=== PATIENT | female | born 1950 | race Caucasian/White ===

== ENCOUNTER 2017-05-12 16:13 | Outpatient (CLI) | payer OTHER ==
--- NOTE | 2017-05-14 17:17 | Mammography Report ---
DIGITAL SCREENING MAMMOGRAM: 05/12/2017 CLINICAL INDICATION: A 66-year-old nulliparous patient for screening. COMPARISON: 05/2016, 04/2015, 12/2013, 08/2012, 08/2011, 08/2010. TECHNIQUE: Routine CC and MLO projections were obtained of the breasts. FINDINGS: Parenchymal tissue within the breasts is predominantly fatty replaced. There are no domin ant masses, suspicious microcalcifications, or secondary signs of malignancy. In comparison to the p revious studies, there are no significant changes. IMPRESSION: NO MAMMOGRAPHIC EVIDENCE OF MALIGNANCY. NO SIGNIFICANT INTERVAL CHANGES. RECOMMENDATION: Screening mammography is recommended annually. BIRADS category 1 - negative. STANDARD QUALIFYING STATEMENTS 1. This examination was reviewed with the aid of Computed-Aided Detection (CAD). 2. A negative or benign imaging report should not delay biopsy if clinically suspicious findings are present. Consider surgical consultation if warranted. More than 5% of cancers are not identified b y imaging. 3. Dense breasts may obscure an underlying neoplasm. JOB #: [id number] EXT JOB #:[id number]
== END 2017-05-12 16:14 | disposition home or self-care (01) ==
LOC: DI 16:13
PROVIDERS: ATTEND Family Medicine
DX: Z12.31 Encounter for screening mammogram for malignant neoplasm of breast (principal)
CPT/HCPCS: 77067

== ENCOUNTER 2017-10-28 11:59 | Inpatient (IN) | payer BC, OTHER ==
[2017-10-28] MEDS ORDERED: SODIUM CHLORIDE 0.9% 1,000 ML IV ONE (12:05)
[2017-10-28 12:28] LABS: BASOPHILS # (AUTO) 0.1 10^3/uL (0.0-0.1); BASOPHILS % (AUTO) 1.2 %; EOSINOPHILS # (AUTO) 0.4 10^3/uL (0.0-0.7); EOSINOPHILS % (AUTO) 5.2 %; HGB - HEMOGLOBIN 11.7 g/dL (12.0-16.0); LYMPHOCYTES # (AUTO) 1.7 10^3/uL (1.5-3.5); MEAN CORPUSCULAR HEMOGLOBIN 29.1 pg (27.0-31.0); MEAN CORPUSCULAR HGB CONC 33.1 g/dL (32.0-36.0); MEAN CORPUSCULAR VOLUME 87.7 fL (81.0-99.0); MEAN PLATELET VOLUME 7.9 fL (7.9-10.8); MONOCYTES # (AUTO) 0.8 10^3/uL (0.0-1.0); MONOCYTES % (AUTO) 10.2 %; NEUTROPHILS # (AUTO) 4.9 10^3/uL (1.5-6.6); NEUTROPHILS % (AUTO) 62.4 %; PLT - PLATELET COUNT 231 10^3/uL (130-450); RED BLOOD COUNT 4.03 10^6/uL (4.20-5.40); RED CELL DISTRIBUTION WIDTH 14.4 % (12.0-15.0); WHITE BLOOD COUNT 7.9 x10^3/uL (4.8-10.8)
[2017-10-28 13:49] LABS: BILIRUBIN,URINE NEGATIVE (NEGATIVE); GLUCOSE, URINE (UA) NEGATIVE (NEGATIVE); KETONES,URINE (UA) NEGATIVE (NEGATIVE); LEUKOCYTE ESTERASE, URINE LARGE (NEGATIVE); NITRITE,URINE NEGATIVE (NEGATIVE); OCCULT BLOOD,URINE MODERATE (NEGATIVE); PROTEIN,URINE NEGATIVE (NEGATIVE); UROBILINOGEN,URINE 0.2 (NORMAL) E.U./dL (NORMAL)
[2017-10-28 13:52] LABS: CLARITY,URINE HAZY (CLEAR)
[2017-10-28 14:07] LABS: SQUAMOUS EPITHELIAL CELL,UR RARE Squamous (<= Few); WBC CLUMPS,URINE PRESENT
[2017-10-28 14:08] LABS: BACTERIA,URINE Rare /HPF (None Seen)
--- NOTE | 2017-10-28 14:11 | ED Physician Documentation ---
History of Present Illness - Stated complaint Stated Complaint: DEHYDRATION - Chief complaint Chief Complaint: General - Additonal information Additional information: hx from pt sent to ER for CK 17K per pt she had a poor appetite over the weekend, was weak, lost her balance and fell twice denies any injury - states did not hit her head hurt her neck break her hip etc had to struggle to get back up and abraded elbows and forehead denies fever cough NVD dysuria denies GREY CP AP states she is hungry Review of Systems Constitutional: denies: Fever, Chills Cardiac: denies: Chest pain / pressure Respiratory: denies: Dyspnea GI: denies: Abdominal Pain, Nausea, Vomiting : denies: Dysuria Endocrine: denies: Easy bruising / bleeding Immunocompromised: denies: Immunocompromised PD PAST MEDICAL HISTORY - Past Medical History Past Medical History: No Cardiovascular: Hypertension Respiratory: None Neuro: Headache/migraine Endocrine/Autoimmune: Type 2 diabetes : None HEENT: Glaucoma Psych: Depression Musculoskeletal: None Derm: None - Past Surgical History Past Surgical History: Yes General: Cholecystectomy HEENT: Tonsil/Adenoidectomy - Present Medications Home Medications: Ambulatory Orders Medication Instructions Recorded Confirmed Acetaminophen 500 mg PO TID PRN 10/28/17 10/28/17 Aripiprazole [Abilify] 10 mg PO DAILY 10/28/17 10/28/17 Aspirin EC [Ecotrin] 162.5 mg PO DAILY 10/28/17 10/28/17 Erythromycin Base [Erythromycin 0.5 inch EACHEYE [id number] 10/28/17 10/28/17 Ophthalmic Ointment] Glipizide 10 mg PO 0730,1630 10/28/17 10/28/17 Latanoprost 0.005% Ophth Drops 1 drops LEFTEYE QPM 10/28/17 10/28/17 [Xalatan Ophth Drops] Lisinopril 20 mg PO DAILY 10/28/17 10/28/17 Methylphenidate HCl 40 mg PO 0400,0900,1400 10/28/17 10/28/17 Mirtazapine 60 mg PO QPM 10/28/17 10/28/17 Timolol 0.5% Ophth Drops [Timoptic 1 drops EACHEYE DAILY 10/28/17 10/28/17 0.5% Ophth Drops] metFORMIN [Glucophage] 1,000 mg PO BIDWM 10/28/17 10/28/17 - Allergies Allergies/Adverse Reactions: Allergies Allergy/AdvReac Type Severity Reaction Status Date / Time bee venom protein (honey bee) Allergy Anaphylaxis Verified 10/28/17 12:04 - Social History Does the pt smoke?: No Smoking Status: Never smoker Does the pt drink ETOH?: Yes Does the pt have substance abuse?: No - Immunizations Immunizations are current?: Yes - POLST Patient has POLST: No PD ED PE NORMAL - Vitals Vital signs reviewed: Yes - General General: Alert and oriented X 3 - HEENT HEENT: PERRL, EOMI (injected mel) - Neck Neck: Supple, no meningeal sign, No bony TTP - Cardiac Cardiac: RRR - Respiratory Respiratory: No respiratory distress, Clear bilaterally - Abdomen Abdomen: Soft, Non tender - Derm Derm: Normal color - Extremities Extremities: No deformity, Other (hips full ROM) - Neuro Neuro: Alert and oriented X 3 Eye Opening: Spontaneous Motor: Obeys Commands Verbal: Oriented GCS Score: 15 Results - Vitals Vitals: Vital Signs - 24 hr 10/28/17 12:00 Temperature 36.3 C L Heart Rate 91 Respiratory 16 Rate Blood Pressure 129/79 O2 Saturation 99 Oxygen O2 Source Room air - Labs Labs: Laboratory Tests 10/28/17 10/28/17 10/28/17 11:30 11:30 12:18 WBC 7.9 RBC 4.03 L Hgb 11.7 L Hct 35.3 L MCV 87.7 MCH 29.1 MCHC 33.1 RDW 14.4 Plt Count 231 MPV 7.9 Neut # 4.9 Lymph # 1.7 [place] # 0.8 Eos # 0.4 Baso # 0.1 Absolute Nucleated RBC 0.00 Nucleated RBC % 0.0 Sodium Potassium Chloride Carbon Dioxide Anion Gap BUN Creatinine Estimated GFR (MDRD) Glucose Calcium Total Bilirubin AST ALT Alkaline Phosphatase Total Creatine Kinase Total Protein Albumin Globulin Albumin/Globulin Ratio Lipase Urine Color YELLOW Urine Clarity HAZY Urine pH 6.0 Ur Specific [place] <=1.005 Urine Protein NEGATIVE Urine Glucose (UA) NEGATIVE Urine Ketones NEGATIVE Urine Occult Blood MODERATE H Urine Nitrite NEGATIVE Urine Bilirubin NEGATIVE Urine Urobilinogen 0.2 (NORMAL) Ur Leukocyte Esterase LARGE H Urine RBC 6-10 H Urine WBC >25 H Urine WBC Clumps PRESENT Ur Epithelial Cells RARE Renal Tubular Ur Squamous Epith Cells RARE Squamous Urine Bacteria Rare Ur Microscopic Review INDICATED Urine Culture Comments INDICATED Urine Opiates Screen NEGATIVE Ur Oxycodone Screen NEGATIVE Urine Methadone Screen NEGATIVE Ur Propoxyphene Screen NEGATIVE Ur Barbiturates Screen NEGATIVE Ur Tricyclics Screen NEGATIVE Ur Phencyclidine Scrn NEGATIVE Ur Amphetamine Screen NEGATIVE U Methamphetamines Scrn NEGATIVE U Benzodiazepines Scrn NEGATIVE Urine Cocaine Screen NEGATIVE U Cannabinoids Screen NEGATIVE 10/28/17 12:18 WBC RBC Hgb Hct MCV MCH MCHC RDW Plt Count MPV Neut # Lymph # [place] # Eos # Baso # Absolute Nucleated RBC Nucleated RBC % Sodium 138 Potassium 3.6 Chloride 109 Carbon Dioxide 22 Anion Gap 7.0 BUN 10 Creatinine 0.9 Estimated GFR (MDRD) 63 L Glucose 179 H Calcium 8.6 Total Bilirubin 0.7 AST 234 H ALT 95 H Alkaline Phosphatase 64 Total Creatine Kinase 23399 H* Total Protein 7.6 Albumin 3.5 Globulin 4.1 Albumin/Globulin Ratio 0.9 L Lipase 14 L Urine Color Urine Clarity Urine pH Ur Specific [place] Urine Protein Urine Glucose (UA) Urine Ketones Urine Occult Blood Urine Nitrite Urine Bilirubin Urine Urobilinogen Ur Leukocyte Esterase Urine RBC Urine WBC Urine WBC Clumps Ur Epithelial Cells Ur Squamous Epith Cells Urine Bacteria Ur Microscopic Review Urine Culture Comments Urine Opiates Screen Ur Oxycodone Screen Urine Methadone Screen Ur Propoxyphene Screen Ur Barbiturates Screen Ur Tricyclics Screen Ur Phencyclidine Scrn Ur Amphetamine Screen U Methamphetamines Scrn U Benzodiazepines Scrn Urine Cocaine Screen U Cannabinoids Screen PD MEDICAL DECISION MAKING - ED course ED course: rhabdo - CL 11K + - gave 2 L NS and bicarb gtt and will admit also UTI which was the likely underlying cause of of hear weakness an fall in the first place - gave rocephin AST noted - per NN pt drinks Departure - Departure Disposition: 66 [facility] DC/Xfer Clinical Impression: Rhabdomyolysis Qualifiers: Rhabdomyolysis type: traumatic Encounter type: initial encounter Qualified Code (s): T79.6XXA - Traumatic ischemia of muscle, initial encounter UTI (urinary tract infection) Qualifiers: Urinary tract infection type: site unspecified Hematuria presence: with hematuria Qualified Code(s): N39.0 - Urinary tract infection, site not specified Condition: Good Discharge Date/Time: 10/28/17 16:07
[2017-10-28 14:12] LABS: ALBUMIN 3.5 g/dL (3.2-5.5); ALBUMIN/GLOBULIN RATIO 0.9 (1.0-2.2); BILIRUBIN,TOTAL 0.7 mg/dL (0.2-1.0); CALCIUM 8.6 mg/dL (8.5-10.3); CREATININE 0.9 mg/dL (0.4-1.0); TOTAL PROTEIN 7.6 g/dL (6.7-8.2)
[2017-10-28] MEDS ORDERED: SODIUM BICARBONATE 100 MEQ in DEXTROSE 5% 1,000 ML IV STA (14:12)
[2017-10-28] MEDS ORDERED: SODIUM CHLORIDE 0.9% 2,000 ML IV ONE (14:12)
[2017-10-28] MEDS ORDERED: cefTRIAXone 1 GM in SODIUM CHLORIDE 0.9% MINIBAG 100 ML IV STA (14:13)
[2017-10-28] MEDS ORDERED: SODIUM CHLORIDE FLUSH 0.9% 10 ML SYRINGE IVP PRN (14:58)
[2017-10-28] MEDS ORDERED: SODIUM CHLORIDE 0.9% 1,000 ML IV SCH (15:00)
--- NOTE | 2017-10-28 17:15 | HISTORY & PHYSICAL EXAMINATION ---
Chief Complaint - Chief Complaint Chief Complaint: fall History of Present Illness - Admitted From Admitted From:: ED - History Obtained From Records Reviewed: yes History obtained from: Chart review, patient Exam Limitations: mental status - History of Present Illness HPI Comment/Other: Saira Dozier is a 66 year old obese white female with a past medical history of DM type 2, hypertension, headaches, migraines, glaucoma, depression, and alcohol dependence. She admits to "a few falls" in the past several days where she lost her footing. Both times, she was able to make it back to her bed and rest. She states that she went to her primary care provider who gave her 1.5L of IV fluids, and she was sent home. She fell again last night, made it back to bed, called in sick for work and friend drove her to our ED. Once in the ED , she was found to have an elevated CK of 11,000, +UTI, conjunctivitis, and a reduced GFR of 63. She wishes her code status to be DNI. She denies fevers, chills, cough, chest pain or shortness of breath. She admits to a recent sore throat, mild arm/shoulder pain and plugged ears. She will be admitted for at least 2 midnights for IVFs, treatment of her UTI, blood sugar control, and monitoring History - Past Medical History Cardiovascular: reports: Hypertension Respiratory: reports: None Neuro: reports: Headache/migraine (caused by perfumes or cleaning solutions.) Endocrine/Autoimmune: reports: Type 2 diabetes GI: reports: None. denies: Esophageal varices, GI bleed, Ulcers BRAND LEADER: reports: None : reports: None, Other (Patient is unaware of current UTI, denies symptoms.) HEENT: reports: Glaucoma Psych: reports: Depression, Other (narcolepsy-Takes Ritalin at home TID.) Musculoskeletal: reports: None Derm: reports: None MRSA Hx?: No - Past Surgical History General: reports: Cholecystectomy HEENT: reports: Tonsil/Adenoidectomy - Family & Social History Family History: Mother: , Father: , Sister: Alive and Well Family History Comment/Other: Mother of a brain aneurysm, father of myelodysplastic syndrome. She has one biological sister who is alive and well. Living arrangement: At home Living Situation: Alone Social History Notes: She admits to attending "happy hour" a few nights per week and states that she no longer checks her blood sugar due to lack of finances. 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 She lives alone and her closest friend is Melissa Richard who is a neighbor. She does not have children, no pets. She denies tobacco or illicit drug use. - Substance History Use: Uses substance without health or social issues: NONE Abuse: Recurrent use of substance despite neg consequences: NONE Dependence: Experiences withdrawal or developed tolerances: NONE - POLST Patient has POLST: No POLST Status: Limited Interventions (Do not intubate.) Meds/Allgy - Home Medications Home Medications: Ambulatory Orders Medication Instructions Recorded Confirmed Acetaminophen 500 mg PO TID PRN 10/28/17 10/28/17 Aripiprazole [Abilify] 10 mg PO DAILY 10/28/17 10/28/17 Aspirin EC [Ecotrin] 162.5 mg PO DAILY 10/28/17 10/28/17 Erythromycin Base [Erythromycin 0.5 inch EACHEYE [id number] 10/28/17 10/28/17 Ophthalmic Ointment] Glipizide 10 mg PO 0730,1630 10/28/17 10/28/17 Latanoprost 0.005% Ophth Drops 1 drops LEFTEYE QPM 10/28/17 10/28/17 [Xalatan Ophth Drops] Lisinopril 20 mg PO DAILY 10/28/17 10/28/17 Methylphenidate HCl 40 mg PO 0400,0900,1400 10/28/17 10/28/17 Mirtazapine 60 mg PO QPM 10/28/17 10/28/17 Timolol 0.5% Ophth Drops [Timoptic 1 drops EACHEYE DAILY 10/28/17 10/28/17 0.5% Ophth Drops] metFORMIN [Glucophage] 1,000 mg PO BIDWM 10/28/17 10/28/17 - Allergies Allergies/Adverse Reactions: Allergies Allergy/AdvReac Type Severity Reaction Status Date / Time bee venom protein (honey bee) Allergy Anaphylaxis Verified 10/28/17 12:04 Review of Systems - Constitutional Constitutional: reports: Fatigue, Weakness, Poor appetite - Eyes Eyes: reports: Irritation, Other (conjunctivitis) - Ears, Nose & Throat Ears, Nose & Throat: reports: Hearing loss, Sore throat, Hoarseness - Cardiovascular Cariovascular: reports: Decr. exercise tolerance - Musculoskeletal Musculoskeletal: reports: Joint swelling - Neurological Neurological: reports: Incoordination - Psychiatric Psychiatric: reports: Depression - Hematologic/Lymphatic Hematologic/Lymphatic: reports: Anemia - All Other Systems All Other Systems: reports: Reviewed and negative Exam - Vital Signs Reviewed Vital Signs: Yes - Physical Exam General Appearance: positive: Moderate distress Eyes Bilateral: positive: PERRL, Other (conjuctivae erythema) ENT: positive: ENT inspection nml, Pharynx nml, Pharyngeal erythema, Dry mucous membranes Neck: positive: Nml inspection, Thyroid nml, No JVD, Other (neck circumferance large) Respiratory: positive: Chest non-tender, No respiratory distress, Breath sounds nml Cardiovascular: positive: Regular rate & rhythm, No murmur, No gallop, Decreased pulse(s) Peripheral Pulses: positive: 1+ Abdomen: positive: Non-tender, Nml bowel sounds, Hepatomegaly, Other (obese, soft) Back: positive: Nml inspection Skin: positive: No rash, Warm, Dry Extremities: positive: Non-tender, Full ROM, Nml appearance, Pedal edema ( depedent) Neurologic/Psychiatric: positive: Oriented x3, CN's nml (2-12), Motor nml, Weakness, Sensory loss, Depressed mood/affect, Other (slow to respond, changes story often.) Reflexes: Bicep (R): 2+, Bicep (L): 2+ Conclusion/Plan - Problem List (1) Noncompliance by refusing intervention or support Conclusion/Plan: Patient was informed of hospital policy regarding Metformin being on hold and using Lantus in it's place. She states that she will refuse this when offered. I spent a great deal of time surrounding this subject and when asked why, she states "I don't want to be hooked on insulin for the rest of my life". Given her elevated LFTs, I cannot say that I would recommend continuing this on discharge. Plan: Continue current insulin orders and re-address in AM. (2) Rhabdomyolysis Conclusion/Plan: Per chart review, patient went to her PCP the day before admission, where she was diagnosed with pink eye and given IVFs for a CK of 17,000. Upon arrival to the ED today, her CK was reduced to 11,000. Patient admits to lying on her floor with the inability to get up. She has several injuries related to this including bilateral skinned elbows, bilateral skinned knees and slight rug burn on her left forehead. She believes this is why she has pink eye. Plan: Continue high dose IVF, normal saline and monitor CK, daily labs. Qualifiers: Rhabdomyolysis type: traumatic Encounter type: initial encounter Qualified Code(s): T79.6XXA - Traumatic ischemia of muscle, initial encounter (3) UTI (urinary tract infection) Conclusion/Plan: Patient denies urinary symptoms or incontinence. A UA was obtained in the ED and shows +UTI. Cultures are pending. She was given 1 dose of IV antibiotics. Plan: Treat with IV antibiotics and await culture sensitivities. Qualifiers: Urinary tract infection type: site unspecified Hematuria presence: with hematuria Qualified Code(s): N39.0 - Urinary tract infection, site not specified; R31.9 - Hematuria, unspecified; R31.9 - Hematuria, unspecified (4) Bilateral conjunctivitis Conclusion/Plan: Patient was seen by her PCP and was diagnosed with this. She claims that the cause is from her carpeting at home as she was lying on the floor for a prolonged time. Plan: Continue prescribed eye medication. Qualifiers: Conjunctivitis type: acute (5) Diabetes mellitus type 2 in obese Conclusion/Plan: Patient states she has a poor memory lately, but believes that she has been diabetic for at least 10 years and has refused insulin in the past. She currently takes metformin and glypizide, but admits to never performing blood glucose checks due to the financial burden related to obtaining appropriate supplies. Plan: Continue counseling, and a nutritional consult was made. Continue blood glucose checks, diabetic diet, and offer appropriate insulin as ordered. - Lab Results Lab results reviewed: Yes Fish Bones: 10/29/17 05:00 10/29/17 05:00 - Diagnostic Imaging Results Diagnostic Imaging Results: positive: Prelim report reviewed, Final report reviewed - EKG Results EKG Interpreted Independently: Yes Core Measures - Anticipated LOS I expect patient to be DC'd or transferred within 96 hours.: Yes - DVT/VTE - Prophylaxis VTE/DVT Device ordered at admit?: Yes VTE/DVT Prophylaxis med ordered at admit?: Yes - Stroke - Rehab Assessment Rehab services assessment to be ordered?: Yes - AMI - Statin at Admit Aspirin Prescribed on Admit: Yes
[2017-10-28] MEDS: ENOXAPARIN 40 MG/0.4 ML SYRINGE SUBQ SCH (17:48)
[2017-10-28] MEDS: ERYTHROMYCIN OPHTH OINT 1 GM TUBE EACHEYE SCH ×2 (17:49→21:07)
[2017-10-28 17:59] LABS: MUDS CUTOFF CONCENTRATIONS CUTOFF CONC BELOW:
[2017-10-28] MEDS: SODIUM CHLORIDE FLUSH 0.9% 10 ML SYRINGE IVP SCH (17:59)
[2017-10-28 18:10] LABS: AMPHETAMINE SCREEN,URINE NEGATIVE (NEGATIVE); BENZODIAZEPINES SCREEN, URINE NEGATIVE (NEGATIVE); COCAINE SCREEN URINE NEGATIVE (NEGATIVE); METHADONE SCREEN, URINE NEGATIVE (NEGATIVE); METHAMPHETAMINES SCREEN, URINE NEGATIVE (NEGATIVE); OPIATE SCREEN, URINE NEGATIVE (NEGATIVE); OXYCODONE SCREEN, URINE NEGATIVE (NEGATIVE); PROPOXYPHENE SCREEN, URINE NEGATIVE (NEGATIVE); TRICYCLIC ANTIDEPRESSANT,URINE NEGATIVE (NEGATIVE)
[2017-10-28] MEDS: INSULIN ASPART 300 UNIT/3 ML PEN SUBQ SCH ×3 (18:10→21:14)
[2017-10-28 18:40] LABS: CHOL/HDL RATIO 3.7 (<4.4); CHOLESTEROL 110 mg/dL; HDL CHOLESTEROL 30 mg/dL; LDL CHOLESTEROL,CALCULATED 49 mg/dL; LDL/HDL RATIO 1.6 (<4.4); VLDL CHOLESTEROL 31 mg/dL
[2017-10-28] MEDS ORDERED: INSULIN GLARGINE 300 UNIT/3 ML PEN SUBQ SCH (21:00)
[2017-10-28] MEDS: ASPIRIN 325 MG TABLET PO SCH (21:05)
[2017-10-28] MEDS: MIRTAZAPINE 15 MG TABLET PO SCH (21:05)
[2017-10-28] MEDS: LATANOPROST 0.005% OPHTH DROPS LEFTEYE SCH (21:06)
[2017-10-28] MEDS: HYDROmorphone 1 MG/ML SYRINGE IVP PRN (21:20)
[2017-10-28] MEDS: SODIUM CHLORIDE 0.9% 1,000 ML IV SCH (21:21)
[2017-10-29] MEDS: SODIUM CHLORIDE 0.9% 1,000 ML IV SCH ×5 (00:59→23:01)
[2017-10-29] MEDS: SODIUM CHLORIDE FLUSH 0.9% 10 ML SYRINGE IVP SCH ×3 (03:33→16:56)
[2017-10-29 05:21] LABS: BASOPHILS # (AUTO) 0.1 10^3/uL (0.0-0.1); EOSINOPHILS # (AUTO) 0.4 10^3/uL (0.0-0.7); EOSINOPHILS % (AUTO) 7.2 %; HGB - HEMOGLOBIN 10.3 g/dL (12.0-16.0); LYMPHOCYTES # (AUTO) 1.4 10^3/uL (1.5-3.5); LYMPHOCYTES % (AUTO) 26.2 %; MEAN CORPUSCULAR HEMOGLOBIN 28.5 pg (27.0-31.0); MEAN CORPUSCULAR HGB CONC 32.7 g/dL (32.0-36.0); MEAN CORPUSCULAR VOLUME 87.4 fL (81.0-99.0); MEAN PLATELET VOLUME 7.6 fL (7.9-10.8); MONOCYTES # (AUTO) 0.6 10^3/uL (0.0-1.0); MONOCYTES % (AUTO) 11.5 %; NEUTROPHILS % (AUTO) 54.1 %; PLT - PLATELET COUNT 200 10^3/uL (130-450); RED BLOOD COUNT 3.62 10^6/uL (4.20-5.40); RED CELL DISTRIBUTION WIDTH 14.4 % (12.0-15.0); WHITE BLOOD COUNT 5.5 x10^3/uL (4.8-10.8)
[2017-10-29 05:32] LABS: ALBUMIN 2.8 g/dL (3.2-5.5); ALBUMIN/GLOBULIN RATIO 0.8 (1.0-2.2); BILIRUBIN,TOTAL 0.4 mg/dL (0.2-1.0); CALCIUM 8.4 mg/dL (8.5-10.3); CREATININE 0.9 mg/dL (0.4-1.0); TOTAL PROTEIN 6.2 g/dL (6.7-8.2)
[2017-10-29 05:37] LABS: HB2 TOTAL 10.9 g/dL; HEMOGLOBIN A1C 0.81 g/dL; HEMOGLOBIN A1C % 8.9 % (4.6-6.2)
[2017-10-29] MEDS: ERYTHROMYCIN OPHTH OINT 1 GM TUBE EACHEYE SCH ×3 (08:11→20:40)
[2017-10-29] MEDS: INSULIN ASPART 300 UNIT/3 ML PEN SUBQ SCH ×7 (08:11→20:35)
[2017-10-29] MEDS: POLYETHYLENE GLYCOL 3350 17 GM PACKET PO SCH (08:57)
[2017-10-29] MEDS: ENOXAPARIN 40 MG/0.4 ML SYRINGE SUBQ SCH (08:59)
[2017-10-29] MEDS: ARIPiprazole 5 MG TABLET PO SCH (09:02)
[2017-10-29] MEDS ORDERED: POTASSIUM CHLORIDE 20 MEQ TABLET PO SCH (09:11)
[2017-10-29] MEDS: METHYLPHENIDATE 10 MG TABLET PO SCH (10:04)
[2017-10-29] MEDS: TIMOLOL 0.5% OPHTH DROPS EACHEYE SCH (10:08)
--- NOTE | 2017-10-29 12:21 | PROVIDER PROGRESS NOTE ---
Subjective - Prog Note Date Prog Note Date: 10/29/17 Prog Note Time: 12:19 - Subjective Pt reports feeling: Improved Subjective: Pat states that she did not sleep well, but is open to staying one more night as this is medically advised. She denies SOB, chest pain, N/V or a new cough. Current Medications - Current Medications Current Medications: Active Medications Aripiprazole (Abilify) 10 mg PO DAILY [facility] Last Admin: 10/29/17 09:02 Dose: 10 mg Aspirin (Wojciech) 162.5 mg PO QPM [facility] Last Admin: 10/28/17 21:05 Dose: 162.5 mg Enoxaparin Sodium (Lovenox) 40 mg SUBQ DAILY [facility] Last Admin: 10/29/17 08:59 Dose: 40 mg Erythromycin (Ilotycin Ophth Oint) 1 applic EACHEYE TID [facility] Last Admin: 10/29/17 08:11 Dose: 1 applic Hydromorphone HCl (Dilaudid Inj Syringe) 1 mg IVP Q4H PRN PRN Reason: PAIN Last Admin: 10/28/17 21:20 Dose: 1 mg Ceftriaxone Sodium 1 gm/ (Sodium Chloride) 100 mls @ 200 mls/hr IV Q24H [facility] Sodium Chloride (Normal Saline 0.9%) 1,000 mls @ 200 mls/hr IV .Q5H [facility] Last Infusion: 10/29/17 11:00 Dose: 200 mls/hr Insulin Aspart (Novolog) 5 unit SUBQ TIDWM [facility] PRN Reason: Protocol Last Admin: 10/29/17 11:52 Dose: 5 unit Insulin Aspart (Novolog) 1 - 9 unit SUBQ 0800,1200,1700,2100 [facility] PRN Reason: Protocol Last Admin: 10/29/17 11:52 Dose: 3 unit Insulin Glargine (Lantus Solostar) 20 unit SUBQ QPM [facility] Last Admin: 10/28/17 21:12 Dose: 20 unit Latanoprost (Xalatan Ophth Drops) 1 drops LEFTEYE QPM [facility] Last Admin: 10/28/17 21:06 Dose: 1 drops Methylphenidate HCl (Ritalin) 40 mg PO DAILY [facility] Last Admin: 10/29/17 10:04 Dose: 40 mg Mirtazapine (Remeron) 60 mg PO QPM [facility] Last Admin: 10/28/17 21:05 Dose: 60 mg Polyethylene Glycol (Miralax) 17 gm PO DAILY [facility] Last Admin: 10/29/17 08:57 Dose: Not Given Sodium Chloride (Normal Saline Flush 0.9%) 10 ml IVP PRN PRN PRN Reason: NEEDED PER PROVIDER ORDERS Sodium Chloride (Normal Saline Flush 0.9%) 10 ml IVP 0100,0900,1700 [facility] Last Admin: 10/29/17 09:03 Dose: 10 ml Timolol Maleate (Timoptic 0.5% Ophth Drops) 1 drops EACHEYE DAILY [facility] Last Admin: 10/29/17 10:08 Dose: 1 drops Acetaminophen 500 mg PO TID PRN 10/28/17 Aripiprazole [Abilify] 10 mg PO DAILY 10/28/17 Aspirin EC [Ecotrin] 162.5 mg PO DAILY 10/28/17 Erythromycin Base [Erythromycin Ophthalmic Ointment] 0.5 inch EACHEYE [id number] Glipizide 10 mg PO 0730,1630 10/28/17 Latanoprost 0.005% Ophth Drops [Xalatan Ophth Drops] 1 drops LEFTEYE QPM Lisinopril 20 mg PO DAILY 10/28/17 Methylphenidate HCl 40 mg PO 0400,0900,1400 10/28/17 Mirtazapine 60 mg PO QPM 10/28/17 Timolol 0.5% Ophth Drops [Timoptic 0.5% Ophth Drops] 1 drops EACHEYE DAILY 10/28 metFORMIN [Glucophage] 1,000 mg PO BIDWM 10/28/17 Objective - Vital Signs/Intake & Output Reviewed Vital Signs: Yes Vital Signs: Vital Signs x48h Temp Pulse Resp BP Pulse Ox 10/29/17 09:16 36.6 C 100 20 134/60 H 96 10/29/17 05:17 36.7 C 89 18 115/60 95 Intake & Output: Intake & Output 10/26/17 10/27/17 10/28/17 10/29/17 23:59 23:59 23:59 23:59 Intake Total 4100 5050.000 Output Total 1800 1100 Balance 2300 3950.000 - Objective General Appearance: positive: No acute distress, Alert Eyes: OU Lid inflammation, OU Other (acute bilateral conjuctivitis) ENT: positive: ENT inspection nml, Pharynx nml, Dry mucous membranes Neck: positive: Nml inspection, Thyroid nml, No JVD, Trachea midline Respiratory: positive: Chest non-tender, No respiratory distress, Breath sounds nml, Other (diminished, no wheezing, no oxygen needs.) Cardiovascular: positive: Regular rate & rhythm, No murmur, No gallop, Decreased pulse(s) Peripheral Pulses: 2+ Radial (R), 2+ Radial (L) Abdomen: positive: Non-tender, No organomegaly, Nml bowel sounds, No distention Back: positive: Nml inspection Skin: positive: No rash, Warm, Dry, Pallor Extremities: positive: Non-tender, Full ROM, Nml appearance, Pedal edema ( chronic, dependent.) Neurologic/Psychiatric: positive: Oriented x3, CN's nml (2-12), Motor nml, Sensation nml Reflexes: Bicep (R): 2+, Bicep (L): 2+ - Lab Results Fish Bones: 10/29/17 05:00 10/29/17 05:00 Other Labs: Lab Results x24hrs 10/29/17 10/29/17 10/29/17 Range/Units 11:31 07:52 05:00 WBC (4.8-10.8) x10^3/uL RBC (4.20-5.40) 10^6/uL Hgb (12.0-16.0) g/dL Hct (37.0-47.0) % MCV (81.0-99.0) fL MCH (27.0-31.0) pg MCHC (32.0-36.0) g/dL RDW (12.0-15.0) % Plt Count (130-450) 10^3/uL MPV (7.9-10.8) fL Neut # (1.5-6.6) 10^3/uL Lymph # (1.5-3.5) 10^3/uL [place] # (0.0-1.0) 10^3/uL Eos # (0.0-0.7) 10^3/uL Baso # (0.0-0.1) 10^3/uL Absolute Nucleated RBC x10^3/uL Nucleated RBC % /100WBC Sodium (135-145) mmol/L Potassium (3.5-5.0) mmol/L Chloride (101-111) mmol/L Carbon Dioxide (21-32) mmol/L Anion Gap (6-13) BUN (6-20) mg/dL Creatinine (0.4-1.0) mg/dL Estimated GFR (MDRD) (>89) Glucose (70-100) mg/dL POC Whole Bld Glucose 221 H 206 H (70 - 100) mg/dL Glycated Hemoglobin (4.6-6.2) % Estim Average Glucose (70-100) Calcium (8.5-10.3) mg/dL Total Bilirubin (0.2-1.0) mg/dL GGT (8-38) IU/L AST (10-42) IU/L ALT (10-60) IU/L Alkaline Phosphatase (42-121) IU/L Total Creatine Kinase (22-269) IU/L Troponin I 0.06 (<0.49) ng/mL B-Natriuretic Peptide (5-100) pg/mL Total Protein (6.7-8.2) g/dL Albumin (3.2-5.5) g/dL Globulin (2.1-4.2) g/dL Albumin/Globulin Ratio (1.0-2.2) Triglycerides ( - 149) mg/dL Cholesterol ( - 199) mg/dL LDL Cholesterol, Calc ( - 129) mg/dL VLDL Cholesterol mg/dL HDL Cholesterol (60 - ) mg/dL LDL/HDL Ratio (<4.4) Cholesterol/HDL Ratio (<4.4) TSH (0.34-5.60) uIU/mL Ethyl Alcohol mg/dL 10/29/17 10/29/17 10/29/17 Range/Units 05:00 05:00 05:00 WBC (4.8-10.8) x10^3/uL RBC (4.20-5.40) 10^6/uL Hgb (12.0-16.0) g/dL Hct (37.0-47.0) % MCV (81.0-99.0) fL MCH (27.0-31.0) pg MCHC (32.0-36.0) g/dL RDW (12.0-15.0) % Plt Count (130-450) 10^3/uL MPV (7.9-10.8) fL Neut # (1.5-6.6) 10^3/uL Lymph # (1.5-3.5) 10^3/uL [place] # (0.0-1.0) 10^3/uL Eos # (0.0-0.7) 10^3/uL Baso # (0.0-0.1) 10^3/uL Absolute Nucleated RBC x10^3/uL Nucleated RBC % /100WBC Sodium (135-145) mmol/L Potassium (3.5-5.0) mmol/L Chloride (101-111) mmol/L Carbon Dioxide (21-32) mmol/L Anion Gap (6-13) BUN (6-20) mg/dL Creatinine (0.4-1.0) mg/dL Estimated GFR (MDRD) (>89) Glucose (70-100) mg/dL POC Whole Bld Glucose (70 - 100) mg/dL Glycated Hemoglobin 8.9 H (4.6-6.2) % Estim Average Glucose 209 H (70-100) Calcium (8.5-10.3) mg/dL Total Bilirubin (0.2-1.0) mg/dL GGT (8-38) IU/L AST (10-42) IU/L ALT (10-60) IU/L Alkaline Phosphatase (42-121) IU/L Total Creatine Kinase 7453 H* (22-269) IU/L Troponin I (<0.49) ng/mL B-Natriuretic Peptide (5-100) pg/mL Total Protein (6.7-8.2) g/dL Albumin (3.2-5.5) g/dL Globulin (2.1-4.2) g/dL Albumin/Globulin Ratio (1.0-2.2) Triglycerides ( - 149) mg/dL Cholesterol ( - 199) mg/dL LDL Cholesterol, Calc ( - 129) mg/dL VLDL Cholesterol mg/dL HDL Cholesterol (60 - ) mg/dL LDL/HDL Ratio (<4.4) Cholesterol/HDL Ratio (<4.4) TSH 1.56 (0.34-5.60) uIU/mL Ethyl Alcohol mg/dL 10/29/17 10/29/1710/28/18 Range/Units 05:00 05:00 20:34 WBC 5.5 (4.8-10.8) x10^3/uL RBC 3.62 L (4.20-5.40) 10^6/uL Hgb 10.3 L (12.0-16.0) g/dL Hct 31.6 L (37.0-47.0) % MCV 87.4 (81.0-99.0) fL MCH 28.5 (27.0-31.0) pg MCHC 32.7 (32.0-36.0) g/dL RDW 14.4 (12.0-15.0) % Plt Count 200 (130-450) 10^3/uL MPV 7.6 L (7.9-10.8) fL Neut # 3.0 (1.5-6.6) 10^3/uL Lymph # 1.4 L (1.5-3.5) 10^3/uL [place] # 0.6 (0.0-1.0) 10^3/uL Eos # 0.4 (0.0-0.7) 10^3/uL Baso # 0.1 (0.0-0.1) 10^3/uL Absolute Nucleated RBC 0.00 x10^3/uL Nucleated RBC % 0.0 /100WBC Sodium 138 (135-145) mmol/L Potassium 3.3 L (3.5-5.0) mmol/L Chloride 104 (101-111) mmol/L Carbon Dioxide 24 (21-32) mmol/L Anion Gap 10.0 (6-13) BUN 9 (6-20) mg/dL Creatinine 0.9 (0.4-1.0) mg/dL Estimated GFR (MDRD) 63 L (>89) Glucose 222 H (70-100) mg/dL POC Whole Bld Glucose 158 H (70 - 100) mg/dL Glycated Hemoglobin (4.6-6.2) % Estim Average Glucose (70-100) Calcium 8.4 L (8.5-10.3) mg/dL Total Bilirubin 0.4 (0.2-1.0) mg/dL GGT (8-38) IU/L AST 164 H (10-42) IU/L ALT 78 H (10-60) IU/L Alkaline Phosphatase 48 (42-121) IU/L Total Creatine Kinase (22-269) IU/L Troponin I (<0.49) ng/mL B-Natriuretic Peptide (5-100) pg/mL Total Protein 6.2 L (6.7-8.2) g/dL Albumin 2.8 L (3.2-5.5) g/dL Globulin 3.4 (2.1-4.2) g/dL Albumin/Globulin Ratio 0.8 L (1.0-2.2) Triglycerides ( - 149) mg/dL Cholesterol ( - 199) mg/dL LDL Cholesterol, Calc ( - 129) mg/dL VLDL Cholesterol mg/dL HDL Cholesterol (60 - ) mg/dL LDL/HDL Ratio (<4.4) Cholesterol/HDL Ratio (<4.4) TSH (0.34-5.60) uIU/mL Ethyl Alcohol mg/dL 10/28/17 10/28/17 10/28/17 Range/Units 18:10 18:10 18:10 WBC (4.8-10.8) x10^3/uL RBC (4.20-5.40) 10^6/uL Hgb (12.0-16.0) g/dL Hct (37.0-47.0) % MCV (81.0-99.0) fL MCH (27.0-31.0) pg MCHC (32.0-36.0) g/dL RDW (12.0-15.0) % Plt Count (130-450) 10^3/uL MPV (7.9-10.8) fL Neut # (1.5-6.6) 10^3/uL Lymph # (1.5-3.5) 10^3/uL [place] # (0.0-1.0) 10^3/uL Eos # (0.0-0.7) 10^3/uL Baso # (0.0-0.1) 10^3/uL Absolute Nucleated RBC x10^3/uL Nucleated RBC % /100WBC Sodium (135-145) mmol/L Potassium (3.5-5.0) mmol/L Chloride (101-111) mmol/L Carbon Dioxide (21-32) mmol/L Anion Gap (6-13) BUN (6-20) mg/dL Creatinine (0.4-1.0) mg/dL Estimated GFR (MDRD) (>89) Glucose (70-100) mg/dL POC Whole Bld Glucose (70 - 100) mg/dL Glycated Hemoglobin (4.6-6.2) % Estim Average Glucose (70-100) Calcium (8.5-10.3) mg/dL Total Bilirubin (0.2-1.0) mg/dL GGT (8-38) IU/L AST (10-42) IU/L ALT (10-60) IU/L Alkaline Phosphatase (42-121) IU/L Total Creatine Kinase 38801 H* (22-269) IU/L Troponin I 0.07 (<0.49) ng/mL B-Natriuretic Peptide (5-100) pg/mL Total Protein (6.7-8.2) g/dL Albumin (3.2-5.5) g/dL Globulin (2.1-4.2) g/dL Albumin/Globulin Ratio (1.0-2.2) Triglycerides 156 H ( - 149) mg/dL Cholesterol 110 ( - 199) mg/dL LDL Cholesterol, Calc 49 ( - 129) mg/dL VLDL Cholesterol 31 mg/dL HDL Cholesterol 30 L (60 - ) mg/dL LDL/HDL Ratio 1.6 (<4.4) Cholesterol/HDL Ratio 3.7 (<4.4) TSH (0.34-5.60) uIU/mL Ethyl Alcohol mg/dL 10/28/17 10/28/17 10/28/17 Range/Units 18:10 18:10 18:10 WBC (4.8-10.8) x10^3/uL RBC (4.20-5.40) 10^6/uL Hgb (12.0-16.0) g/dL Hct (37.0-47.0) % MCV (81.0-99.0) fL MCH (27.0-31.0) pg MCHC (32.0-36.0) g/dL RDW (12.0-15.0) % Plt Count (130-450) 10^3/uL MPV (7.9-10.8) fL Neut # (1.5-6.6) 10^3/uL Lymph # (1.5-3.5) 10^3/uL [place] # (0.0-1.0) 10^3/uL Eos # (0.0-0.7) 10^3/uL Baso # (0.0-0.1) 10^3/uL Absolute Nucleated RBC x10^3/uL Nucleated RBC % /100WBC Sodium (135-145) mmol/L Potassium (3.5-5.0) mmol/L Chloride (101-111) mmol/L Carbon Dioxide (21-32) mmol/L Anion Gap (6-13) BUN (6-20) mg/dL Creatinine (0.4-1.0) mg/dL Estimated GFR (MDRD) (>89) Glucose (70-100) mg/dL POC Whole Bld Glucose (70 - 100) mg/dL Glycated Hemoglobin (4.6-6.2) % Estim Average Glucose (70-100) Calcium (8.5-10.3) mg/dL Total Bilirubin (0.2-1.0) mg/dL GGT 15 (8-38) IU/L AST (10-42) IU/L ALT (10-60) IU/L Alkaline Phosphatase (42-121) IU/L Total Creatine Kinase (22-269) IU/L Troponin I (<0.49) ng/mL B-Natriuretic Peptide 55 (5-100) pg/mL Total Protein (6.7-8.2) g/dL Albumin (3.2-5.5) g/dL Globulin (2.1-4.2) g/dL Albumin/Globulin Ratio (1.0-2.2) Triglycerides ( - 149) mg/dL Cholesterol ( - 199) mg/dL LDL Cholesterol, Calc ( - 129) mg/dL VLDL Cholesterol mg/dL HDL Cholesterol (60 - ) mg/dL LDL/HDL Ratio (<4.4) Cholesterol/HDL Ratio (<4.4) TSH (0.34-5.60) uIU/mL Ethyl Alcohol < 5.0 mg/dL 10/28/17 Range/Units 17:16 WBC (4.8-10.8) x10^3/uL RBC (4.20-5.40) 10^6/uL Hgb (12.0-16.0) g/dL Hct (37.0-47.0) % MCV (81.0-99.0) fL MCH (27.0-31.0) pg MCHC (32.0-36.0) g/dL RDW (12.0-15.0) % Plt Count (130-450) 10^3/uL MPV (7.9-10.8) fL Neut # (1.5-6.6) 10^3/uL Lymph # (1.5-3.5) 10^3/uL [place] # (0.0-1.0) 10^3/uL Eos # (0.0-0.7) 10^3/uL Baso # (0.0-0.1) 10^3/uL Absolute Nucleated RBC x10^3/uL Nucleated RBC % /100WBC Sodium (135-145) mmol/L Potassium (3.5-5.0) mmol/L Chloride (101-111) mmol/L Carbon Dioxide (21-32) mmol/L Anion Gap (6-13) BUN (6-20) mg/dL Creatinine (0.4-1.0) mg/dL Estimated GFR (MDRD) (>89) Glucose (70-100) mg/dL POC Whole Bld Glucose 202 H (70 - 100) mg/dL Glycated Hemoglobin (4.6-6.2) % Estim Average Glucose (70-100) Calcium (8.5-10.3) mg/dL Total Bilirubin (0.2-1.0) mg/dL GGT (8-38) IU/L AST (10-42) IU/L ALT (10-60) IU/L Alkaline Phosphatase (42-121) IU/L Total Creatine Kinase (22-269) IU/L Troponin I (<0.49) ng/mL B-Natriuretic Peptide (5-100) pg/mL Total Protein (6.7-8.2) g/dL Albumin (3.2-5.5) g/dL Globulin (2.1-4.2) g/dL Albumin/Globulin Ratio (1.0-2.2) Triglycerides ( - 149) mg/dL Cholesterol ( - 199) mg/dL LDL Cholesterol, Calc ( - 129) mg/dL VLDL Cholesterol mg/dL HDL Cholesterol (60 - ) mg/dL LDL/HDL Ratio (<4.4) Cholesterol/HDL Ratio (<4.4) TSH (0.34-5.60) uIU/mL Ethyl Alcohol mg/dL - Diagnostic Imaging Diagnostic Imaging Results: positive: Final report reviewed Assessment/Plan - Problem List (1) Noncompliance by refusing intervention or support Impression: At the time of admission the patient was informed of hospital policy regarding Metformin being on hold and using Lantus in it's place. She states that she will refuse this when offered. I spent a great deal of time surrounding this subject and when asked why, she states "I don't want to be hooked on insulin for the rest of my life". Today, patient was somewhat more receptive of being on insulin and did not complain about her oral medications being on hold. Her LFTs continue to improve. Concrete Mixer Operator spent some time in counseling her, and orders to pre- order a glucometer with glucose strips were sent to her pharmacy of choice. Plan: Continue current insulin orders and a carb-controlled diet. (2) Rhabdomyolysis Impression: Per chart review, patient went to her PCP the day before admission, where she was diagnosed with pink eye and given IVFs for a CK of 17,000. Upon arrival to the ED today, her CK was reduced to 11,000. Patient admits to lying on her floor with the inability to get up. She has several injuries related to this including bilateral skinned elbows, bilateral skinned knees and slight rug burn on her left forehead. She believes this is why she has pink eye. CK today was reduced to 7453. If this level continues to decreased nicely, patient may be discharged home with strict PCP follow up and good blood sugar control. Plan: Continue high dose IVF, normal saline and monitor CK, daily labs. Qualifiers: Rhabdomyolysis type: traumatic Encounter type: initial encounter Qualified Code(s): T79.6XXA - Traumatic ischemia of muscle, initial encounter (3) UTI (urinary tract infection) Impression: Patient denies urinary symptoms or incontinence. A UA was obtained in the ED and shows +UTI. Cultures are back, now awaiting sensitivities. She was given 1 dose of IV antibiotics in the ED, and these were continued. Plan: Treat with IV antibiotics, IVFs, and await culture sensitivities. Qualifiers: Urinary tract infection type: site unspecified Hematuria presence: with hematuria Qualified Code(s): N39.0 - Urinary tract infection, site not specified; R31.9 - Hematuria, unspecified; R31.9 - Hematuria, unspecified (4) Bilateral conjunctivitis Impression: Patient was seen by her PCP and was diagnosed with this. She claims that the cause is from her carpeting at home as she was lying on the floor for a prolonged time. Upon exam today, patient seems much improved and with less drainage and irritation. Plan: Continue prescribed eye medication. Qualifiers: Conjunctivitis type: acute (5) Diabetes mellitus type 2 in obese Impression: Patient states she has a poor memory lately, but believes that she has been diabetic for at least 10 years and has refused insulin in the past. She currently takes metformin and glypizide, but admits to never performing blood glucose checks due to the financial burden related to obtaining appropriate supplies. A hemoglobin A1C was elevated on admission to 8.9. Patient claims this is because she has recently eaten too much cake and treats at work. She will likely need to be discharged on Lantus for better control and prevention of further infections. Early AM blood sugar was elevated at 202, so Lantus dose was increased from 20 units daily to 25 units. Plan: Continue counseling, and a nutrition is consulting. Continue blood glucose checks, diabetic diet, and offer appropriate insulin as ordered.
[2017-10-29] MEDS ORDERED: METHYLPHENIDATE 10 MG TABLET PO SCH (14:00)
[2017-10-29] MEDS: cefTRIAXone 1 GM in SODIUM CHLORIDE 0.9% MINIBAG 100 ML IV SCH (14:04)
[2017-10-29] MEDS ORDERED: SODIUM CHLORIDE FLUSH 0.9% 10 ML SYRINGE ONE (14:05)
[2017-10-29] MEDS ORDERED: guaiFENesin/DEXTROMETHORPHAN 10 ML UDC PO PRN (15:37)
[2017-10-29] MEDS ORDERED: INSULIN GLARGINE 300 UNIT/3 ML PEN SUBQ SCH ×2 (15:38→21:00)
[2017-10-29] MEDS: HYDROmorphone 1 MG/ML SYRINGE IVP PRN ×2 (15:42→20:33)
[2017-10-29] MEDS: guaiFENesin 600 MG TABLET PO SCH ×2 (15:47→20:34)
[2017-10-29] MEDS: MIRTAZAPINE 15 MG TABLET PO SCH (20:33)
[2017-10-29] MEDS: ASPIRIN 325 MG TABLET PO SCH (20:34)
[2017-10-29] MEDS: LATANOPROST 0.005% OPHTH DROPS LEFTEYE SCH (20:36)
[2017-10-30] MEDS: SODIUM CHLORIDE FLUSH 0.9% 10 ML SYRINGE IVP SCH ×3 (00:48→19:09)
[2017-10-30] MEDS: SODIUM CHLORIDE 0.9% 1,000 ML IV SCH ×4 (04:02→19:06)
[2017-10-30] MEDS: ERYTHROMYCIN OPHTH OINT 1 GM TUBE EACHEYE SCH ×3 (06:22→15:55)
[2017-10-30] MEDS: TIMOLOL 0.5% OPHTH DROPS EACHEYE SCH (08:21)
[2017-10-30] MEDS: guaiFENesin 600 MG TABLET PO SCH (08:36)
[2017-10-30] MEDS: ARIPiprazole 5 MG TABLET PO SCH (08:39)
[2017-10-30] MEDS: METHYLPHENIDATE 10 MG TABLET PO SCH (08:40)
[2017-10-30] MEDS: INSULIN ASPART 300 UNIT/3 ML PEN SUBQ SCH ×6 (08:51→19:08)
[2017-10-30] MEDS: POLYETHYLENE GLYCOL 3350 17 GM PACKET PO SCH (09:01)
[2017-10-30 09:43] LABS: BASOPHILS # (AUTO) 0.1 10^3/uL (0.0-0.1); EOSINOPHILS # (AUTO) 0.4 10^3/uL (0.0-0.7); EOSINOPHILS % (AUTO) 7.2 %; HGB - HEMOGLOBIN 10.5 g/dL (12.0-16.0); LYMPHOCYTES # (AUTO) 1.1 10^3/uL (1.5-3.5); LYMPHOCYTES % (AUTO) 20.8 %; MEAN CORPUSCULAR VOLUME 87.7 fL (81.0-99.0); MEAN PLATELET VOLUME 8.2 fL (7.9-10.8); MONOCYTES # (AUTO) 0.5 10^3/uL (0.0-1.0); MONOCYTES % (AUTO) 9.4 %; NEUTROPHILS # (AUTO) 3.3 10^3/uL (1.5-6.6); NEUTROPHILS % (AUTO) 61.6 %; PLT - PLATELET COUNT 218 10^3/uL (130-450); RED BLOOD COUNT 3.61 10^6/uL (4.20-5.40); RED CELL DISTRIBUTION WIDTH 14.7 % (12.0-15.0); WHITE BLOOD COUNT 5.4 x10^3/uL (4.8-10.8)
[2017-10-30 09:57] LABS: ALBUMIN 2.7 g/dL (3.2-5.5); ALBUMIN/GLOBULIN RATIO 0.8 (1.0-2.2); BILIRUBIN,TOTAL 0.5 mg/dL (0.2-1.0); CALCIUM 8.8 mg/dL (8.5-10.3); CREATININE 0.8 mg/dL (0.4-1.0); TOTAL PROTEIN 6.3 g/dL (6.7-8.2)
[2017-10-30 10:05] LABS: FOLATE 8.59 ng/mL (5.90 - >24.8)
[2017-10-30] MEDS: ENOXAPARIN 40 MG/0.4 ML SYRINGE SUBQ SCH (10:49)
[2017-10-30] MEDS ORDERED: BACITRACIN OINT TOP PRN (11:00)
--- NOTE | 2017-10-30 12:00 | Discharge Plan ---
Discharge Plan Disposition: Home, Self Care Condition: Good Prescriptions: Blood Sugar Diagnostic [Glucometer Strips] 1 each QID #1 strip Blood-Glucose Meter [Glucometer] 1 each QID #1 each Ciprofloxacin HCl [Cipro] 500 mg PO DAILY 10 Days #10 tablet Insulin Glargine [Lantus Solostar] 30 unit SUBQ QPM #1 pen Lancets 1 each QID #1 each Pen Needle, Diabetic [Insulin Pen Needle] 1 each QID #1 dis.needle Diet: Diabetic Activity Restrictions: No Restrictions Shower Restrictions: No Driving Restrictions: No Weight Bearing: Full Weight Instruction Topics: Enoxaparin injection, Insulin Aspart injection Additional Instructions or Follow Up instructions: You were admitted for a condition called rhabdomyolysis due to being on the floor for too many hours. You were treated with IV fluids and your labs were monitored. You were also found to have a bladder infection and given IV antibiotics that should continue for another 10 days. Your blood sugars were monitored and it was determined by your hemoglobin A1C that your blood sugars are poorly controlled at home. You should continue your oral medications and start a long acting Lantus each evening. Please see your PCP within one week. Please rest if you are tired and continue drinking plenty of fluids. Follow-Up Care: [facility] [place] [facility] - Diabetes Ed No Smoking: If you smoke, Please STOP! Call for help. Follow-up with: Becky De La Paz DO [Primary Care Provider] -
--- NOTE | 2017-10-30 12:11 | DISCHARGE SUMMARY ---
Discharge Summary Admit Date: 10/28/17 Discharge Date: 10/30/17 Discharging Provider: NAVIN Paniagua Primary Care Provider: Becky De La Paz Code Status: Attempt Resuscitation Condition at Discharge: Good Discharge Disposition: 01 Home, Self Care - DIAGNOSES Admission Diagnoses: Rhabdomyolysis (M62.82) Noncompliance by refusing intervention or support (Z53.29) Alcohol dependence (F10.20) Elevated LFTs (R79.89) Diabetes mellitus type 2 in obese (E11.69) Discharge Diagnoses with Status of Each Condition: Rhabdomyolysis (M62.82) improved and likely to continue to improve. Noncompliance by refusing intervention or support (Z53.29) ongoing. Alcohol dependence (F10.20) not confirmed. Elevated LFTs (R79.89) resolved. Diabetes mellitus type 2 in obese (E11.69) chronic, stable, treatment to continue. - HPI History of Present Illness: Saira Dozier is a 66 year old obese white female with a past medical history of DM type 2, hypertension, headaches, migraines, glaucoma, depression, and alcohol dependence. She admits to "a few falls" in the past several days where she lost her footing. Both times, she was able to make it back to her bed and rest. She states that she went to her primary care provider who gave her 1.5L of IV fluids, and she was sent home. She fell again last night, made it back to bed, called in sick for work and friend drove her to our ED. Once in the ED , she was found to have an elevated CK of 11,000, +UTI, conjunctivitis, and a reduced GFR of 63. She wishes her code status to be DNI. She denies fevers, chills, cough, chest pain or shortness of breath. She admits to a recent sore throat, mild arm/shoulder pain and plugged ears. She will be admitted for at least 2 midnights for IVFs, treatment of her UTI, blood sugar control, and monitoring. - HOSPITAL COURSE Hospital Course: The following diagnoses were prevalent during this hospital stay: (1) Noncompliance by refusing intervention or support- At the time of admission the patient was informed of hospital policy regarding Metformin being on hold and using Lantus in it's place. She states that she will refuse this when offered. I spent a great deal of time surrounding this subject and when asked why, she states "I don't want to be hooked on insulin for the rest of my life". The patient became somewhat more receptive of being on insulin and did not complain about her oral medications being on hold by her second day. Her LFTs continued to improve. Heel Splitter spent some time in counseling her, and orders to pre-order a glucometer with glucose strips were sent to her pharmacy of choice the day prior to discharge so that care management could review the total cost of these items. Patient was covered with sliding scale aspart insulin and remained on a carb-controlled diet. To avoid further non- compliance patient was only prescribed long-acting insulin to be given every PM. (2) Rhabdomyolysis- Per chart review, patient went to her PCP the day before admission, where she was diagnosed with pink eye and given IVFs for a CK of 17, 000. Upon arrival to the ED today, her CK was reduced to 11,000. Patient admits to lying on her floor with the inability to get up. She has several injuries related to this including bilateral skinned elbows, bilateral skinned knees and slight rug burn on her left forehead. She believes that her lying on her carpet is why she has pink eye. CK levels gradually decreased with high dose normal saline IVFs, and labs were checked daily. (3) UTI (urinary tract infection)- Patient denies urinary symptoms or incontinence. A UA was obtained in the ED and shows +UTI. Cultures are back, now awaiting sensitivities. She was given 1 dose of IV antibiotics in the ED, and these were continued. Patient was treated with IV antibiotics, and IVFs. She was given IV Rochephin and transitioned to Cipro PO to be continued for additional 10 days, including a probiotic for 20 days. (4) Bilateral conjunctivitis- Patient was seen by her PCP and was diagnosed with this. She claims that the cause is from her carpeting at home as she was lying on the floor for a prolonged time. Patient improved and was noted to have less drainage and irritation. Patient was continued on previous prescription eye medication. (5) Diabetes mellitus type 2 in obese- Patient states she has a poor memory lately, but believes that she has been diabetic for at least 10 years and has refused insulin in the past. She currently takes metformin and glypizide, but admits to never performing blood glucose checks due to the financial burden related to obtaining appropriate supplies. A hemoglobin A1C was elevated on admission to 8.9. Patient claims this is because she has recently eaten too much cake and treats at work. She was discharged on Lantus for better control and prevention of further infections. A sliding scale- fast acting insulin was not recommended at the time of discharge due to patient's resistance to follow recommendations. Patient was counseled on insulin use and blood sugar monitoring by nursing staff, myself and nutritional educator. She was advised to follow up with PCP early next week. Disposition: Patient was discharged in stable condition, but complained about being overwhelmed. I came back to her room close to 7pm and she was visibly upset about how confusing the insulin was. I reviewed with her my orders in which I did not continue the sliding scale and only recommend one change at a time, therefore, only starting Lantus. She was instructed to re-start her other oral medications. She was transported home via friend. She stated she would be picking up her prescriptions in the morning. - ALLERGIES Allergies/Adverse Reactions: Allergies Allergy/AdvReac Type Severity Reaction Status Date / Time bee venom protein (honey bee) Allergy Anaphylaxis Verified 10/28/17 12:04 cefadroxil [From Duricef] Allergy Unknown Verified 10/30/17 16:36 doxycycline Allergy Unknown Verified 10/30/17 16:30 hydrocodone Allergy Unknown Verified 10/30/17 16:32 oxycodone Allergy Unknown Uncoded 10/30/17 16:35 septra Allergy Unknown Uncoded 10/30/17 16:34 tramadol Allergy Unknown Uncoded 10/30/17 16:32 - MEDICATIONS Home Medications: Ambulatory Orders Medication Instructions Recorded Confirmed Acetaminophen 500 mg PO TID PRN 10/28/17 10/28/17 Aripiprazole [Abilify] 10 mg PO DAILY 10/28/17 10/28/17 Aspirin EC [Ecotrin] 162.5 mg PO DAILY 10/28/17 10/28/17 Erythromycin Base [Erythromycin 0.5 inch EACHEYE [id number] 10/28/17 10/28/17 Ophthalmic Ointment] Glipizide 10 mg PO 0730,1630 10/28/17 10/28/17 Latanoprost 0.005% Ophth Drops 1 drops LEFTEYE QPM 10/28/17 10/28/17 [Xalatan Ophth Drops] Lisinopril 20 mg PO DAILY 10/28/17 10/28/17 Methylphenidate HCl 40 mg PO 0400,0900,1400 10/28/17 10/28/17 Mirtazapine 60 mg PO QPM 10/28/17 10/28/17 Timolol 0.5% Ophth Drops [Timoptic 1 drops EACHEYE DAILY 10/28/17 10/28/17 0.5% Ophth Drops] metFORMIN [Glucophage] 1,000 mg PO BIDWM 10/28/17 10/28/17 Blood Sugar Diagnostic [Glucometer 1 each QID #1 strip 10/29/17 Strips] Blood-Glucose Meter [Glucometer] 1 each QID #1 each 10/29/17 Ciprofloxacin HCl [Cipro] 500 mg PO DAILY 10 Days #10 tablet 10/30/17 Insulin Glargine [Lantus Solostar] 30 unit SUBQ QPM #1 pen 10/30/17 Lancets 1 each QID #1 each 10/30/17 Pen Needle, Diabetic [Insulin Pen 1 each QID #1 dis.needle 10/30/17 Needle] - PHYSICAL EXAM AT DISCHARGE General Appearance: positive: No acute distress, Anxious Eyes Bilateral: positive: PERRL, Other (resolving conjunctivitis) ENT: positive: ENT inspection nml, Pharynx nml, No signs of dehydration Neck: positive: Nml inspection, Thyroid nml, No JVD Respiratory: positive: Chest non-tender, No respiratory distress, Breath sounds nml Cardiovascular: positive: Regular rate & rhythm, No murmur, No gallop Peripheral Pulses: positive: 1+ Abdomen: positive: Non-tender, No organomegaly, Nml bowel sounds, No distention , Other (obese, soft) Back: positive: Nml inspection Skin: positive: No rash, Warm, Dry, Pallor Extremities: positive: Non-tender, Full ROM, Nml appearance, Pedal edema Neurologic/Psychiatric: positive: Oriented x3, CN's nml (2-12), Motor nml, Sensation nml, Depressed mood/affect Reflexes: Bicep (R): 3+, Bicep (L): 3+ - LABS Result Diagrams: 10/30/17 09:10 10/30/17 09:10 - DIAGNOSTIC IMAGING Diagnostic Imaging Results: Final report reviewed - FOLLOW UP Follow Up: isposition: 01 Home, Self Care Condition: Good Prescriptions: Blood Sugar Diagnostic [Glucometer Strips] 1 each QID #1 strip Blood-Glucose Meter [Glucometer] 1 each QID #1 each Ciprofloxacin HCl [Cipro] 500 mg PO DAILY 10 Days #10 tablet Insulin Glargine [Lantus Solostar] 30 unit SUBQ QPM #1 pen Lancets 1 each QID #1 each Pen Needle, Diabetic [Insulin Pen Needle] 1 each QID #1 dis.needle Diet: Diabetic Activity Restrictions: No Restrictions Shower Restrictions: No Driving Restrictions: No Weight Bearing: Full Weight Instruction Topics: Enoxaparin injection, Insulin Aspart injection Additional Instructions or Follow Up instructions: You were admitted for a condition called rhabdomyolysis due to being on the floor for too many hours. You were treated with IV fluids and your labs were monitored. You were also found to have a bladder infection and given IV antibiotics that should continue for another 10 days. Your blood sugars were monitored and it was determined by your hemoglobin A1C that your blood sugars are poorly controlled at home. You should continue your oral medications and start a long acting Lantus each evening. Please see your PCP within one week, your B12 was low, so you should take a supplement. Please rest if you are tired and continue drinking plenty of fluids. - TIME SPENT Time Spent in Discharge (Minutes): 60
[2017-10-30] MEDS: cefTRIAXone 1 GM in SODIUM CHLORIDE 0.9% MINIBAG 100 ML IV SCH (13:17)
[2017-10-30 19:02] VITALS: BP 175/77
[2017-10-30] MEDS ORDERED: INSULIN GLARGINE 300 UNIT/3 ML PEN SUBQ SCH (21:00)
[2017-10-31 13:51] LABS: HEPATITIS B SURFACE ANTIGEN NON-REACTIVE (NON-REACTIVE); HEPATITIS C ANTIBODY NON-REACTIVE (NON-REACTIVE)
[2017-10-31 14:17] LABS: HEPATITIS A AB TOTAL(IMMUNITY) REACTIVE (NON-REACTIVE)
[2017-11-02 19:10] LABS: HCV RNA QNT <1.18 NOT DETECTED Log IU/mL (NOT DETECTED); HCV RNA QUANT RT PCR <15 NOT DETECTED IU/mL (NOT DETECTED)
[2017-11-03 00:04] LABS: HEPATITIS C VIRAL RNA GENOTYPE NOT DETECTED
== END 2017-10-30 20:10 | disposition home or self-care (01) | DRG 558 ==
LOC: ED 11:59 → MS3 14:58
PROVIDERS: ADMIT Nurse Practitioner; ATTEND Nurse Practitioner
DX: M62.82 Rhabdomyolysis (principal); N39.0 Urinary tract infection, site not specified; Z68.41 Body mass index [BMI] 40.0-44.9, adult; R31.9 Hematuria, unspecified; H10.9 Unspecified conjunctivitis; E11.8 Type 2 diabetes mellitus with unspecified complications; E66.9 Obesity, unspecified; F10.20 Alcohol dependence, uncomplicated; R79.89 Other specified abnormal findings of blood chemistry; I10 Essential (primary) hypertension; G43.909 Migraine, unspecified, not intractable, without status migrainosus; H40.9 Unspecified glaucoma; F32.9 Major depressive disorder, single episode, unspecified; G47.419 Narcolepsy without cataplexy; S50.312A Abrasion of left elbow, initial encounter; S50.311A Abrasion of right elbow, initial encounter; S80.212A Abrasion, left knee, initial encounter; S80.211A Abrasion, right knee, initial encounter; S00.81XA Abrasion of other part of head, initial encounter; W18.30XA Fall on same level, unspecified, initial encounter; Y92.009 Unspecified place in unspecified non-institutional (private) residence as the place of occurrence of the external cause; Z91.14 Patient's other noncompliance with medication regimen; Z91.81 History of falling; Z79.84 Long term (current) use of oral hypoglycemic drugs; Z79.82 Long term (current) use of aspirin; Z79.899 Other long term (current) drug therapy; Z87.11 Personal history of peptic ulcer disease
CPT/HCPCS: 36415; 80053; 80061; 80306; 80307; 80320; 81001; 81003; 82550; 82607; 82746; 82977; 83036; 83690; 83721; 83880; 84443; 84484; 85025; 86317; 86708; 86709; 86803; 87086; 87340; 87522; 87902; 99282; 99284

== ENCOUNTER 2017-10-28 16:49 | Outpatient (CLI) | payer BC, OTHER ==
[2017-10-28 14:13] LABS: CREATININE 0.9 mg/dL (0.4-1.0)
== END 2017-10-28 16:50 | disposition home or self-care (01) ==
LOC: LAB.WCP 16:49
PROVIDERS: ATTEND Family Medicine
DX: E11.9 Type 2 diabetes mellitus without complications (principal); M79.1 Myalgia
CPT/HCPCS: 36415; 80048; 82550

== ENCOUNTER 2019-07-29 13:09 | Outpatient (CLI) | payer BC ==
--- NOTE | 2019-08-01 13:59 | Mammography Report ---
Reason: SCREENING MAMMOGRAM Procedure Date: 07/29/2019 Accession Number: [id number] / [id number] Procedure: ADELINE - Screening Mammo w/Fabrizio CPT Code: Final Report FULL RESULT: EXAM: Screening Mammo w/Fabrizio DATE: 07/29/2019 1:41 PM CLINICAL HISTORY: The patient is an asymptomatic 68-year-old female. No reported personal nor family history of breast cancer. TECHNIQUE: (B) - Bilateral CC and MLO views were obtained. COMPARISON: 05/12/2017 , 05/27/2016, 04/12/2015 PARENCHYMAL PATTERN: (A) - The breasts demonstrate scattered fibroglandular densities bilaterally. FINDINGS: There are no suspicious masses, calcifications, or areas of distortion. IMPRESSION: Negative examination. BI-RADS category 1. RECOMMENDATION: (ANNUAL) - Recommend routine annual screening mammography. BI-RADS CATEGORY: (1) - Negative. STANDARD QUALIFYING STATEMENTS: 1. This examination was not reviewed with the aid of Computer-Aided Detection (CAD). 2. A negative or benign imaging report should not preclude biopsy if clinically suspicious findings are present. 3. Dense breasts may obscure an underlying neoplasm. 4. This examination was reviewed with the aid of 3D breast imaging (tomosynthesis).
== END 2019-07-29 13:10 | disposition home or self-care (01) ==
LOC: DI 13:09
DX: Z12.31 Encounter for screening mammogram for malignant neoplasm of breast (principal)
CPT/HCPCS: 77063; 77067

== ENCOUNTER 2020-11-01 07:04 | Outpatient (CLI) | payer BC, OTHER ==
[2020-11-01 12:36] LABS: BASOPHILS # (AUTO) 0.1 10^3/uL (0.0-0.1); BASOPHILS % (AUTO) 1.2 %; EOSINOPHILS # (AUTO) 0.3 10^3/uL (0.0-0.7); EOSINOPHILS % (AUTO) 5.1 %; HCT - HEMATOCRIT 36.3 % (37.0-47.0); HGB - HEMOGLOBIN 11.4 g/dL (12.0-16.0); LYMPHOCYTES % (AUTO) 34.1 %; MEAN CORPUSCULAR HEMOGLOBIN 29.4 pg (27.0-31.0); MEAN CORPUSCULAR HGB CONC 31.4 g/dL (32.0-36.0); MEAN CORPUSCULAR VOLUME 93.6 fL (81.0-99.0); MEAN PLATELET VOLUME 10.7 fL (7.9-10.8); MONOCYTES # (AUTO) 0.6 10^3/uL (0.0-1.0); MONOCYTES % (AUTO) 10.4 %; NEUTROPHILS # (AUTO) 2.9 10^3/uL (1.5-6.6); NEUTROPHILS % (AUTO) 48.9 %; PLT - PLATELET COUNT 220 10^3/uL (130-450); RED BLOOD COUNT 3.88 10^6/uL (4.20-5.40); RED CELL DISTRIBUTION WIDTH 13.3 % (12.0-15.0); WHITE BLOOD COUNT 5.8 x10^3/uL (4.8-10.8)
[2020-11-01 13:03] LABS: ESTIMATED AVERAGE GLUCOSE 252 mg/dL (70-100); HEMOGLOBIN A1c% 10.4 % (4.27-6.07)
[2020-11-01 13:11] LABS: CREATININE,URINE 98.2 mg/dL; MICROALBUM/CREATININE RATIO,UR 150.7 ug/mg (<30.0); MICROALBUMIN,URINE 14.8 mg/dL (0-300.0)
[2020-11-01 13:26] LABS: ALBUMIN 3.5 g/dL (3.2-5.5); ALBUMIN/GLOBULIN RATIO 0.9 (1.0-2.2); ALKALINE PHOSPHATASE 66 IU/L (42-121); ALT ALANINE AMINOTRANSFERASE 20 IU/L (10-60); AST ASPARTATE AMINOTRANSFERASE 19 IU/L (10-42); BILIRUBIN,TOTAL 0.4 mg/dL (0.2-1.0); BUN - BLOOD UREA NITROGEN 24 mg/dL (6-20); CALCIUM 9.5 mg/dL (8.5-10.3); CARBON DIOXIDE - CO2 24 mmol/L (21-32); CHLORIDE 101 mmol/L (101-111); CHOL/HDL RATIO 5.4 (<4.4); CHOLESTEROL 201 mg/dL; CREATININE 1.2 mg/dL (0.4-1.0); GFR - MDRD 45 (>89); GLUCOSE 298 mg/dL (70-100); HDL CHOLESTEROL 37 mg/dL; LDL CHOLESTEROL,CALCULATED 98 mg/dL; LDL/HDL RATIO 2.6 (<4.4); POTASSIUM 4.3 mmol/L (3.5-5.0); SODIUM 138 mmol/L (135-145); TOTAL PROTEIN 7.5 g/dL (6.7-8.2); TRIGLYCERIDES 332 mg/dL; VLDL CHOLESTEROL 66 mg/dL
[2020-11-01 14:16] LABS: THYROID STIMULATING HORMONE 2.1 uIU/mL (0.34-5.60)
== END 2020-11-01 23:59 | disposition home or self-care (01) ==
LOC: LAB.WCP 07:04
PROVIDERS: ATTEND Family Medicine
DX: I10 Essential (primary) hypertension (principal); E11.9 Type 2 diabetes mellitus without complications; E78.5 Hyperlipidemia, unspecified; R53.83 Other fatigue
CPT/HCPCS: 36415; 80053; 80061; 82043; 82570; 83036; 83721; 84443; 85025

== ENCOUNTER 2021-01-28 08:00 | Outpatient (CLI) | payer OTHER ==
[2021-01-28 12:08] LABS: CALCIUM 9.3 mg/dL (8.5-10.3); CREATININE 1.1 mg/dL (0.4-1.0)
[2021-01-28 12:32] LABS: ESTIMATED AVERAGE GLUCOSE 252 mg/dL (70-100); HEMOGLOBIN A1c% 10.4 % (4.27-6.07)
== END 2021-01-28 23:59 | disposition home or self-care (01) ==
LOC: LAB.WCP 08:00
PROVIDERS: ATTEND Family Medicine
DX: E11.8 Type 2 diabetes mellitus with unspecified complications (principal)
CPT/HCPCS: 36415; 80048; 83036

== ENCOUNTER 2021-07-19 07:21 | Outpatient (CLI) | payer OTHER ==
[2021-07-19 12:45] LABS: BASOPHILS # (AUTO) 0.1 10^3/uL (0.0-0.1); EOSINOPHILS # (AUTO) 0.4 10^3/uL (0.0-0.7); EOSINOPHILS % (AUTO) 6.4 %; HCT - HEMATOCRIT 37.7 % (37.0-47.0); HGB - HEMOGLOBIN 11.7 g/dL (12.0-16.0); LYMPHOCYTES # (AUTO) 1.9 10^3/uL (1.5-3.5); LYMPHOCYTES % (AUTO) 29.9 %; MEAN CORPUSCULAR HEMOGLOBIN 29.6 pg (27.0-31.0); MEAN CORPUSCULAR VOLUME 95.4 fL (81.0-99.0); MEAN PLATELET VOLUME 10.3 fL (7.9-10.8); MONOCYTES # (AUTO) 0.5 10^3/uL (0.0-1.0); MONOCYTES % (AUTO) 8.6 %; NEUTROPHILS # (AUTO) 3.4 10^3/uL (1.5-6.6); NEUTROPHILS % (AUTO) 53.8 %; PLT - PLATELET COUNT 228 10^3/uL (130-450); RED BLOOD COUNT 3.95 10^6/uL (4.20-5.40); RED CELL DISTRIBUTION WIDTH 13.4 % (12.0-15.0); WHITE BLOOD COUNT 6.3 x10^3/uL (4.8-10.8)
[2021-07-19 13:07] LABS: ALBUMIN 3.8 g/dL (3.2-5.5); ALBUMIN/GLOBULIN RATIO 1.1 (1.0-2.2); ALKALINE PHOSPHATASE 53 IU/L (42-121); ALT ALANINE AMINOTRANSFERASE 28 IU/L (10-60); AST ASPARTATE AMINOTRANSFERASE 31 IU/L (10-42); BILIRUBIN,TOTAL 0.6 mg/dL (0.2-1.0); BUN - BLOOD UREA NITROGEN 13 mg/dL (6-20); CALCIUM 9.5 mg/dL (8.5-10.3); CARBON DIOXIDE - CO2 25 mmol/L (21-32); CHLORIDE 106 mmol/L (101-111); CHOLESTEROL 215 mg/dL; CREATININE 1.1 mg/dL (0.4-1.0); GFR - MDRD 49 (>89); GLUCOSE 212 mg/dL (70-100); HDL CHOLESTEROL 43 mg/dL; LDL CHOLESTEROL,CALCULATED 128 mg/dL; POTASSIUM 4.2 mmol/L (3.5-5.0); SODIUM 141 mmol/L (135-145); TOTAL PROTEIN 7.4 g/dL (6.7-8.2); TRIGLYCERIDES 218 mg/dL; VLDL CHOLESTEROL 44 mg/dL
[2021-07-19 13:14] LABS: THYROID STIMULATING HORMONE 2.3 uIU/mL (0.34-5.60)
[2021-07-19 15:56] LABS: ESTIMATED AVERAGE GLUCOSE 220 mg/dL (70-100); HEMOGLOBIN A1c% 9.3 % (4.27-6.07)
== END 2021-07-19 23:59 | disposition home or self-care (01) ==
LOC: LAB.WCP 07:21
PROVIDERS: ATTEND Nurse Practitioner Family
DX: I10 Essential (primary) hypertension (principal); E11.9 Type 2 diabetes mellitus without complications; R53.83 Other fatigue; E78.5 Hyperlipidemia, unspecified
CPT/HCPCS: 36415; 80053; 80061; 83036; 83721; 84443; 85025

== ENCOUNTER 2021-12-02 07:28 | Outpatient (CLI) | payer OTHER ==
[2021-12-02 12:49] LABS: ALBUMIN 3.7 g/dL (3.2-5.5); ALBUMIN/GLOBULIN RATIO 0.9 (1.0-2.2); ALKALINE PHOSPHATASE 64 IU/L (42-121); ALT ALANINE AMINOTRANSFERASE 23 IU/L (10-60); AST ASPARTATE AMINOTRANSFERASE 29 IU/L (10-42); BUN - BLOOD UREA NITROGEN 11 mg/dL (6-20); CALCIUM 9.4 mg/dL (8.5-10.3); CARBON DIOXIDE - CO2 27 mmol/L (21-32); CHLORIDE 105 mmol/L (101-111); CHOL/HDL RATIO 4.6 (<4.4); CHOLESTEROL 215 mg/dL; CREATININE 1.1 mg/dL (0.4-1.0); GFR - MDRD 49 (>89); GLUCOSE 157 mg/dL (70-100); HDL CHOLESTEROL 47 mg/dL; LDL CHOLESTEROL,CALCULATED 128 mg/dL; LDL/HDL RATIO 2.7 (<4.4); POTASSIUM 3.5 mmol/L (3.5-5.0); SODIUM 142 mmol/L (135-145); TOTAL PROTEIN 7.7 g/dL (6.7-8.2); TRIGLYCERIDES 200 mg/dL; VLDL CHOLESTEROL 40 mg/dL
[2021-12-02 14:09] LABS: ESTIMATED AVERAGE GLUCOSE 203 mg/dL (70-100); HEMOGLOBIN A1c% 8.7 % (4.27-6.07)
== END 2021-12-02 07:29 | disposition home or self-care (01) ==
LOC: LAB.N 07:28
PROVIDERS: ATTEND Family Medicine
DX: E11.8 Type 2 diabetes mellitus with unspecified complications (principal)
CPT/HCPCS: 36415; 80053; 80061; 83036; 83721

== ENCOUNTER 2022-07-29 15:40 | Outpatient (CLI) | payer OTHER ==
[2022-07-29 16:45] VITALS: BP 138/80
--- NOTE | 2022-07-29 16:45 | SLEEP CARE CONSULTATION ---
Information from patient questionnaire entered by Alexandra Snider. I have reviewed and concur with the information entered by Alexandra Snider. This document represents the service I personally performed and the decisions made by me, Paulina Thapa ARNP. History of Present Illness Service Date and Time: 07/29/2022 1540 Reason for Visit: New patient, Previously diagnosed sleep apnea, sleep apnea on CPAP therapy Chief Complaint: reports: Other (UPDATE SUPPLIES ) Date of Onset: many years Snores at night: No Observed to quit breathing while asleep: No (NOT NOW SINCE USING CPAP) Sleeps alone due to snoring: No (N/A) Number of times waking at night: 1 Reasons for waking at night: reports: Bathroom Toss, Turn, or Twitch while sleeping: No Recalls having dreams: Yes Usually gets out of bed at: 615AM VARIES LATE AM EARLY AFTERNOON Morning headache: No Sleepy or fatigued during the day: Yes Ever fallen asleep while driving: Yes (NODDING OFF NOT FALLING ASLEEP) Takes day naps: Yes Dreams during day naps: No Prior sleep studies: Yes (2 NOT SURE WHEN OR WERE [place]?) Additional HPI information: FABIAN SOLER was previously diagnosed to have unknown, AHI unknown, obstructive sleep apnea-hypopnea syndrome and comes in today to establish care for CPAP therapy. - Parasomnia Symptoms Ever been unable to move upon waking from sleep: No Walks in sleep: No Talks in sleep: No Ever acted out dreams in sleep: No Ever felt weak in the knees when startled or emotional: No Bothered by creepy, crawly, restless sensations in legs: No Problems with memory or concentration: Yes CPAP Compliance Data - Data Reviewed with Patient Average duration of nightly device use: 8 hours 13 mins Compliance rate %: 97.8 (179/180 days used) Current pressure setting (cmH2O): 8-14 Average residual AHI: 1.2 Central apnea: 0 Obstructive apnea: 0.2 Hypopnea: 1 Subjective Patient concerns: denies: aerophagia, mask discomfort, air blowing in eyes, mask leak noise, condensation in mask/hose, nasal congestion, dry mouth, nose, throat, epistaxis Observed to snore while using device: No Current pressure setting perceived as: comfortable On therapy, patient: reports: sleeping better, awakening more refreshed, being more awake and alert during the day, more rested overall Initial [place] Sleepiness Scale score: 9 (07/22/2022) Past Medical History Past Medical History: reports: Hypertension, Diabetes, Depression, Other (high cholesterol) Social History 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 Patient is Single and lives in [place]. Have you smoked in the past 12 months: No Alcohol use: Yes Alcohol amount and frequency: 1 DRINK 1-2 TIMES A MONTH Caffeine use: Yes Caffeine amount and frequency: ICE TEA OR DR PEPPER 4-5 TIMES A MONTH Family History Family history of sleep disordered breathing: Yes Family Hx Sleep Apnea: Father: Snoring, Sleep apnea - Untreated Allergies and Home Medications Known drug allergies: Yes Drug allergies reviewed: Yes (as listed EMR) Home medication list reviewed: Yes (see list in EMR) Review of Systems Cardiovascular: reports: high blood pressure Neurological: reports: headaches Psychiatric: reports: depression Ear/Nose/Throat: reports: dry mouth/throat, tonsillectomy, wisdom teeth removed, other (GLAUCOMA) Physical Exam Vital signs obtained and entered by: ALEXANDRA Urbina MA Blood Pressure: 138/80 (LEFT ARM ) Cuff size: long Heart Rate: 98 O2 Saturation: 96 Height: 5 ft 4 in Weight: 236 lb Body Mass Index: 40.5 BMI Classification: Morbidly Obese Neck circumference: 16.75 Heart: regular rate and rhythm Lungs: clear bilaterally Impression and Plan 1. Obstructive Sleep Apnea-Hypopnea Syndrome, unknown, with good treatment compliance and good apnea control. On CPAP therapy, the patient has better sleep quality and is more rested overall. Patient has an old RemStar machine that was received in 2013 and is trying to get a replacement before the end of the year. We obtained a copy of a titration study by [facility] but it did not have diagnosis and severity documented. She thinks that she had a sleep study at [facility] in [place] about 10 years ago. We will see if we can come up with a copy of that sleep study. I think that she will need to do a sleep study to verify diagnosis and severity. She has [employer] insurance. If we can come up with a copy of a sleep study I will just order her a new device and supplies. Patient's apnea severity and rationale for treatment to reduce apnea, improve sleep quality and reduce cardiovascular and cerebrovascular events was reviewed. I also reviewed the benefit of consistent device use of CPAP for hypertension, diabetes and depression. 2. Obesity, unspecified. Currently patients BMI is 40.5. Obesity increases the risk of apnea, CPAP pressure requirements and overall health risks especially cardiovascular and diabetes. Thus patient is advised to lose weight. * Continue auto CPAP pressure at 8-14 cmH2O * PSG/HST * Notify me if snoring with mask or feeling that the pressure is too much or too little * Attempt to lose weight * Call this office if any problems using CPAP * Return for follow up after sleep study, or sooner if concerns arise Counseling Topics: Spare mask, Weight loss health impact Visit Type: In Office Time Spent with Patient (minutes): 38 Provider Statement: I spent 100% of the Face to Face Visit with the patient with greater than 50% spent counseling the patient and coordination of care.
== END 2022-07-29 15:41 | disposition home or self-care (01) ==
LOC: SC 15:40
PROVIDERS: ATTEND Nurse Practitioner Family
DX: G47.33 Obstructive sleep apnea (adult) (pediatric) (principal); E66.01 Morbid (severe) obesity due to excess calories; Z68.41 Body mass index [BMI] 40.0-44.9, adult
CPT/HCPCS: 99203; 99212

== ENCOUNTER 2022-08-04 11:40 | Outpatient (CLI) | payer OTHER ==
[2022-08-04 18:03] LABS: BASOPHILS # (AUTO) 0.1 10^3/uL (0.0-0.1); EOSINOPHILS # (AUTO) 0.4 10^3/uL (0.0-0.7); EOSINOPHILS % (AUTO) 4.5 %; HCT - HEMATOCRIT 41.9 % (37.0-47.0); LYMPHOCYTES # (AUTO) 2.3 10^3/uL (1.5-3.5); LYMPHOCYTES % (AUTO) 24.5 %; MEAN CORPUSCULAR HEMOGLOBIN 28.4 pg (27.0-31.0); MEAN CORPUSCULAR VOLUME 91.5 fL (81.0-99.0); MEAN PLATELET VOLUME 10.8 fL (7.9-10.8); MONOCYTES # (AUTO) 0.8 10^3/uL (0.0-1.0); MONOCYTES % (AUTO) 8.4 %; NEUTROPHILS # (AUTO) 5.6 10^3/uL (1.5-6.6); NEUTROPHILS % (AUTO) 61.2 %; PLT - PLATELET COUNT 281 10^3/uL (130-450); RED BLOOD COUNT 4.58 10^6/uL (4.20-5.40); WHITE BLOOD COUNT 9.2 x10^3/uL (4.8-10.8)
[2022-08-04 18:14] LABS: ALBUMIN 3.8 g/dL (3.2-5.5); ALBUMIN/GLOBULIN RATIO 0.9 (1.0-2.2); ALKALINE PHOSPHATASE 78 IU/L (42-121); ALT ALANINE AMINOTRANSFERASE 27 IU/L (10-60); AST ASPARTATE AMINOTRANSFERASE 31 IU/L (10-42); BILIRUBIN,TOTAL 0.5 mg/dL (0.2-1.0); BUN - BLOOD UREA NITROGEN 19 mg/dL (6-20); CALCIUM 10.4 mg/dL (8.5-10.3); CARBON DIOXIDE - CO2 28 mmol/L (21-32); CHLORIDE 103 mmol/L (101-111); CHOL/HDL RATIO 5.7 (<4.4); CHOLESTEROL 215 mg/dL; CREATININE 1.1 mg/dL (0.4-1.0); GFR - MDRD 49 (>89); GLUCOSE 182 mg/dL (70-100); HDL CHOLESTEROL 38 mg/dL; LDL CHOLESTEROL,CALCULATED 133 mg/dL; LDL/HDL RATIO 3.5 (<4.4); POTASSIUM 4.3 mmol/L (3.5-5.0); SODIUM 141 mmol/L (135-145); TOTAL PROTEIN 8.1 g/dL (6.7-8.2); TRIGLYCERIDES 222 mg/dL; VLDL CHOLESTEROL 44 mg/dL
[2022-08-04 21:09] LABS: ESTIMATED AVERAGE GLUCOSE 166 mg/dL (70-100); HEMOGLOBIN A1c% 7.4 % (4.27-6.07)
== END 2022-08-04 11:41 | disposition home or self-care (01) ==
LOC: LAB.N 11:40
PROVIDERS: ATTEND Nurse Practitioner Family
DX: I10 Essential (primary) hypertension (principal); E11.8 Type 2 diabetes mellitus with unspecified complications; E78.5 Hyperlipidemia, unspecified; Z79.899 Other long term (current) drug therapy
CPT/HCPCS: 36415; 80053; 80061; 82607; 83036; 83721; 85025

== ENCOUNTER 2022-08-08 19:30 | Outpatient (CLI) | payer OTHER | END 2022-08-08 19:31 | disposition home or self-care (01) | LOC: SC 19:30 | PROVIDERS: ATTEND Nurse Practitioner Family | DX: G47.33 Obstructive sleep apnea (adult) (pediatric) (principal) | CPT/HCPCS: 95810 ==

== ENCOUNTER 2022-08-19 11:09 | Outpatient (CLI) | payer OTHER ==
--- NOTE | 2022-08-19 15:11 | SLEEP CARE CONSULTATION ---
Information from patient questionnaire entered by Alexandra Snider. I have reviewed and concur with the information entered by Alexandra Snider. This document represents the service I personally performed and the decisions made by , Paulina Thapa ARNP. History of Present Illness Service Date and Time: 08/19/2022 1109 Initial [place] Sleepiness Scale score: 9 (07/22/2022) Current [place] Sleepiness Scale score: 15 (08/19/22) Additional HPI information: FABIAN SOLER returns for follow up and results of the recently performed polysomnography. I explained the pathophysiology behind obstructive sleep apnea. We then spent quite a bit of time discussing different treatment options. For mild obstructive sleep apnea, surgery and oral appliance are alternatives to nasal CPAP therapy but in moderate or severe cases, nasal CPAP is the most effective and reliable treatment. I reviewed the impact of weight changes on sleep apnea and strongly recommended losing weight. Patient is to continue with nasal CPAP therapy with nasal autoCPAP set at 8-14 cmH20. Patient was cautioned about risks of drowsy driving until sleepiness symptoms resolve. Sleep Study - Results Type of Sleep Study: Polysomnography (COMPLETED 08/08/2022) Prior sleep studies: Yes (2 NOT SURE WHEN OR WERE [place]?) Polysomnography/Home Sleep Study results: IMPRESSION: The quality of the study is good. The patient had slightly reduced sleep efficiency due to sleep onset insomnia and a prolonged awakening in the second half of the night. The sleep architecture was normal. Respiratory monitoring showed moderate obstructive sleep apnea-hypopnea (AHI = 19.1) associated with frequent oxyhemoglobin desaturation and moderate hypoxia (hang oxygen saturation of 74%) . The patient only slept supine during this study (supine AHI = 19.1; non-supine = 0.00). Snore was light to moderate in intensity. There was no significant periodic leg movement of sleep. Cardiac rhythm was normal sinus rhythm without significant arrhythmia. No abnormal behavior (parasomnia) observed during the night. Allergies and Home Medications Drug allergies reviewed: Yes (see list in EMR) Home medication list reviewed: Yes (no changes) Review of Systems Review of systems same as previous: Yes (no changes) Physical Exam Vital signs obtained and entered by: ALEXANDRA Urbina MA Blood Pressure: 149/78 (LEFT ARM) Cuff size: regular Heart Rate: 93 O2 Saturation: 96 Height: 5 ft 4 in Weight: 241 lb 6.4 oz Body Mass Index: 41.4 BMI Classification: Morbidly Obese Impression and Plan 1. Obstructive Sleep Apnea-Hypopnea Syndrome, moderate. Patient would like to continue with her CPAP. We had to re-qualify her to continue CPAP and get her set up with a new device and supplies. She was associated with [facility] but they are no longer dealing in CPAP supplies. The patients CPAP is over 5 years old and of reasonable use. I will have my branch employment coordinator inform of DME options. A [facility] prescription will then be made for supplies and a new device. She would like to have it authorized to purchase rather than rental purchase. Patient advised to contact this office if further supply problems. Compliance guidelines for new device and follow up discussed. Patient's apnea severity and rationale for treatment to reduce apnea, improve sleep quality and reduce cardiovascular and cerebrovascular events was reviewed. I also reviewed the benefit of consistent device use of CPAP for hypertension, diabetes and depression. * Continue auto CPAP pressure at 8-14 cmH2O * Transfer DME * Update machine, authorize for purchase, urgent setup * Update supplies * Notify me if snoring with mask or feeling that the pressure is too much or too little * Call this office if any problems using CPAP * Return for follow up one month after obtaining new device, or sooner if concerns arise Counseling Topics: Weight loss health impact Visit Type: In Office Time Spent with Patient (minutes): 25 Provider Statement: I spent 100% of the Face to Face Visit with the patient with greater than 50% spent counseling the patient and coordination of care.
[2022-08-19 15:12] VITALS: BP 149/78
== END 2022-08-19 11:10 | disposition home or self-care (01) ==
LOC: SC 11:09
PROVIDERS: ATTEND Nurse Practitioner Family
DX: G47.33 Obstructive sleep apnea (adult) (pediatric) (principal); E66.01 Morbid (severe) obesity due to excess calories; Z68.41 Body mass index [BMI] 40.0-44.9, adult
CPT/HCPCS: 99212; 99213

== ENCOUNTER 2022-10-27 08:41 | Outpatient (CLI) | payer OTHER ==
--- NOTE | 2022-10-27 09:57 | Mammography Report ---
BILATERAL DIGITAL SCREENING MAMMOGRAM 3D/2D: 10/27/2022 CLINICAL: Routine screening. Comparison is made to exams dated: 07/29/2019 mammogram, 05/12/2017 mammogram, 05/27/2016 mammogram, 04/12/2015 mammogram, and 12/09/2013 mammogram - [facility]. Both breasts are almost entirely fatty (category a/<25% glandular tissue). No significant masses, calcifications, or other findings are seen in either breast. There has been no significant interval change. IMPRESSION: NEGATIVE There is no mammographic evidence of malignancy. A 1 year screening mammogram is recommended. Based on the Tyrer Cuzick model (a risk assessment model) the patients lifetime risk is 5.1% and her 10 year risk is 3.0%. According to the ACR, ACS, and NCCN guidelines, an annual breast MRI exam ryan g with mammogram is recommended if the patients lifetime risk is 20% or greater. This exam was interpreted at Station ID: [id number]. NOTE: For mammograms, a report in lay terms will be sent to the patient. Approximately 15% of breast malignancies will not be visualized mammographically. In the management of a palpable breast mass, a negative mammogram must not discourage biopsy of a clinically suspicious lesion. Electronically Signed By: Laci sanchez/jerry:10/27/2022 09:19:19 letter sent: No_Letter ACR BI-RADS Category 1: Negative 3341F PARENCHYMAL PATTERN: (F) - The breast(s) demonstrate(s) diffuse fatty replacement. BI-RADS CATEGORY: (1) - 1 RECOMMENDATION: (ANNUAL) - Recommend routine annual screening mammography. [id number] 1 year screening LATERALITY: (B)
== END 2022-10-27 08:42 | disposition home or self-care (01) ==
LOC: DI 08:41
DX: Z12.31 Encounter for screening mammogram for malignant neoplasm of breast (principal)

== ENCOUNTER 2023-01-13 09:36 | Outpatient (CLI) | payer OTHER ==
[2023-01-13 10:06] LABS: BASOPHILS # (AUTO) 0.1 10^3/uL (0.0-0.1); EOSINOPHILS # (AUTO) 0.4 10^3/uL (0.0-0.7); EOSINOPHILS % (AUTO) 5.3 %; HCT - HEMATOCRIT 37.6 % (37.0-47.0); HGB - HEMOGLOBIN 11.7 g/dL (12.0-16.0); LYMPHOCYTES # (AUTO) 1.9 10^3/uL (1.5-3.5); LYMPHOCYTES % (AUTO) 26.6 %; MEAN CORPUSCULAR HEMOGLOBIN 28.2 pg (27.0-31.0); MEAN CORPUSCULAR HGB CONC 31.1 g/dL (32.0-36.0); MEAN CORPUSCULAR VOLUME 90.6 fL (81.0-99.0); MEAN PLATELET VOLUME 9.7 fL (7.9-10.8); MONOCYTES # (AUTO) 0.6 10^3/uL (0.0-1.0); MONOCYTES % (AUTO) 8.6 %; NEUTROPHILS # (AUTO) 4.2 10^3/uL (1.5-6.6); NEUTROPHILS % (AUTO) 58.2 %; PLT - PLATELET COUNT 199 10^3/uL (130-450); RED BLOOD COUNT 4.15 10^6/uL (4.20-5.40); RED CELL DISTRIBUTION WIDTH 14.3 % (12.0-15.0); WHITE BLOOD COUNT 7.2 x10^3/uL (4.8-10.8)
[2023-01-13 10:12] LABS: ALBUMIN 4.1 g/dL (3.2-5.5); ALKALINE PHOSPHATASE 70 IU/L (42-121); ALT ALANINE AMINOTRANSFERASE 21 IU/L (10-60); AST ASPARTATE AMINOTRANSFERASE 28 IU/L (10-42); BILIRUBIN,TOTAL 0.4 mg/dL (0.2-1.0); BUN - BLOOD UREA NITROGEN 18 mg/dL (6-20); CALCIUM 9.6 mg/dL (8.5-10.3); CARBON DIOXIDE - CO2 22 mmol/L (21-32); CHLORIDE 106 mmol/L (101-111); CHOL/HDL RATIO 2.9 (<4.4); CHOLESTEROL 159 mg/dL; CK- CREATINE KINASE 197 IU/L (22-269); CREATININE 1.2 mg/dL (0.4-1.0); GFR - MDRD 44 (>89); GLUCOSE 231 mg/dL (70-100); HDL CHOLESTEROL 55 mg/dL; LDL CHOLESTEROL,CALCULATED 67 mg/dL; LDL/HDL RATIO 1.2 (<4.4); POTASSIUM 4.2 mmol/L (3.5-5.0); SODIUM 140 mmol/L (135-145); TOTAL PROTEIN 8.2 g/dL (6.7-8.2); TRIGLYCERIDES 183 mg/dL; VLDL CHOLESTEROL 37 mg/dL
[2023-01-13 10:48] LABS: CREATININE,URINE 127.9 mg/dL; MICROALBUM/CREATININE RATIO,UR 71.1 ug/mg (<30.0); MICROALBUMIN,URINE 9.1 mg/dL (0-300.0)
[2023-01-13 11:56] LABS: ESTIMATED AVERAGE GLUCOSE 200 mg/dL (70-100); HEMOGLOBIN A1c% 8.6 % (4.27-6.07)
== END 2023-01-13 09:37 | disposition home or self-care (01) ==
LOC: LAB 09:36
PROVIDERS: ATTEND Nurse Practitioner Family
DX: E11.8 Type 2 diabetes mellitus with unspecified complications (principal); E53.8 Deficiency of other specified B group vitamins; E78.5 Hyperlipidemia, unspecified
CPT/HCPCS: 36415; 80053; 80061; 82043; 82550; 82570; 82607; 83036; 83721; 83921; 85025

== ENCOUNTER 2023-04-20 10:17 | Outpatient (CLI) | payer OTHER ==
[2023-04-20 13:03] LABS: CREATININE,URINE 209.2 mg/dL; MICROALBUMIN,URINE 11.5 mg/dL
[2023-04-20 13:05] LABS: ESTIMATED AVERAGE GLUCOSE 177 mg/dL (70-100); HEMOGLOBIN A1c% 7.8 % (4.27-6.07)
[2023-04-20 13:10] LABS: CALCIUM 10.4 mg/dL (8.5-10.3); POTASSIUM 3.8 mmol/L (3.5-4.5)
== END 2023-04-20 10:18 | disposition home or self-care (01) ==
LOC: LAB.N 10:17
PROVIDERS: ATTEND Nurse Practitioner Family
DX: E11.8 Type 2 diabetes mellitus with unspecified complications (principal)
CPT/HCPCS: 36415; 80048; 82043; 82570; 83036

== ENCOUNTER 2023-10-07 10:55 | Outpatient (CLI) | payer OTHER ==
--- NOTE | 2023-10-07 12:10 | XRAY Report ---
PROCEDURE: Shoulder 2+V RT INDICATIONS: RIGHT SHOULDER JOINT PAIN TECHNIQUE: 3 views of the shoulder were acquired. COMPARISON: None. FINDINGS: Bones: No fractures or dislocations. Mild glenohumeral joint space loss and irregularity of the zohaib oid fossa margin. Mild degenerative spurring at the AC joint and undersurface spurring of the lateral acromion. No suspicious bony lesions. Visualized ribs appear intact. Soft tissues: No suspicious soft tissue calcifications. The visualized lungs are within normal limi ts. IMPRESSION: Mild to moderate acromioclavicular and glenohumeral joint degeneration. Reviewed by: Shannan Bernard MD on 10/07/2023 12:08 PM PST Approved by: Shannan Bernard MD on 10/07/2023 12:08 PM PST Station ID: [id number]
== END 2023-10-07 10:56 | disposition home or self-care (01) ==
LOC: DI 10:55
PROVIDERS: ATTEND Nurse Practitioner Family
DX: M19.011 Primary osteoarthritis, right shoulder (principal)

== ENCOUNTER 2024-06-03 08:03 | Outpatient (CLI) | payer OTHER ==
[2024-06-03 12:26] LABS: BASOPHILS # (AUTO) 0.1 10^3/uL (0.0-0.1); BASOPHILS % (AUTO) 0.8 %; EOSINOPHILS # (AUTO) 0.4 10^3/uL (0.0-0.7); EOSINOPHILS % (AUTO) 5.1 %; HCT - HEMATOCRIT 39.1 % (37.0-47.0); HGB - HEMOGLOBIN 12.4 g/dL (12.0-16.0); LYMPHOCYTES # (AUTO) 2.2 10^3/uL (1.5-3.5); LYMPHOCYTES % (AUTO) 29.9 %; MEAN CORPUSCULAR HEMOGLOBIN 29.4 pg (27.0-31.0); MEAN CORPUSCULAR HGB CONC 31.7 g/dL (32.0-36.0); MEAN CORPUSCULAR VOLUME 92.7 fL (81.0-99.0); MONOCYTES # (AUTO) 0.6 10^3/uL (0.0-1.0); MONOCYTES % (AUTO) 8.6 %; NEUTROPHILS # (AUTO) 4.1 10^3/uL (1.5-6.6); NEUTROPHILS % (AUTO) 55.3 %; PLT - PLATELET COUNT 197 10^3/uL (130-450); RED BLOOD COUNT 4.22 10^6/uL (4.20-5.40); RED CELL DISTRIBUTION WIDTH 13.9 % (12.0-15.0); WHITE BLOOD COUNT 7.4 x10^3/uL (4.8-10.8)
[2024-06-03 12:38] LABS: CREATININE,URINE 143.8 mg/dL; MICROALBUM/CREATININE RATIO,UR 86.9 ug/mg (<30.0); MICROALBUMIN,URINE 12.5 mg/dL
[2024-06-03 12:52] LABS: THYROID STIMULATING HORMONE 4.26 uIU/mL (0.34-5.60)
[2024-06-03 12:53] LABS: BUN - BLOOD UREA NITROGEN 15 mg/dL (6-20); CALCIUM 9.8 mg/dL (8.5-10.3); CARBON DIOXIDE - CO2 26 mmol/L (21-32); CHLORIDE 106 mmol/L (101-111); CHOL/HDL RATIO 2.6 (<4.4); CHOLESTEROL 110 mg/dL; CREATININE 1.2 mg/dL (0.6-1.3); GFR - MDRD 44 (>89); GLUCOSE 219 mg/dL (74-104); HDL CHOLESTEROL 42 mg/dL; LDL CHOLESTEROL,CALCULATED 28 mg/dL; LDL/HDL RATIO 0.7 (<4.4); SODIUM 140 mmol/L (135-145); TRIGLYCERIDES 201 mg/dL; VLDL CHOLESTEROL 40 mg/dL
[2024-06-03 13:10] LABS: ESTIMATED AVERAGE GLUCOSE 200 mg/dL (70-100); HEMOGLOBIN A1c% 8.6 % (4.27-6.07)
== END 2024-06-03 08:04 | disposition home or self-care (01) ==
LOC: LAB.N 08:03
PROVIDERS: ATTEND Nurse Practitioner Family
DX: I12.9 Hypertensive chronic kidney disease with stage 1 through stage 4 chronic kidney disease, or unspecified chronic kidney disease (principal); E11.22 Type 2 diabetes mellitus with diabetic chronic kidney disease; E11.8 Type 2 diabetes mellitus with unspecified complications; E78.5 Hyperlipidemia, unspecified; E66.01 Morbid (severe) obesity due to excess calories
CPT/HCPCS: 36415; 80048; 80061; 82043; 82570; 83036; 83721; 84443; 85025